=== PATIENT | female | born 2000 | race Hispanic/Latino ===

== ENCOUNTER 2022-04-24 18:31 | Emergency (ER) | payer OTHER, SELFPAY ==
--- OUTSIDE RECORDS SUMMARY | 2022-04-24 18:36 | XMS REPORT | Continuity of Care Document ---
:2000 Author Organization [facility] t Address [address] [place] [address] Dr. Mattson. [address] [place] [address] Care Team Providers Name Role Phone Aries Sharif Primary Care Physician [phone] MIKE NGUYEN Attending Clinician Unavailable Pcp, Patient Does Not Have A Attending Clinician +[phone]- [phone] Doctor Unassigned, [place] Attending Clinician Unavailable LANCE MCINTOSH Attending Clinician Unavailable Payers Payer Name Policy Type Policy Number Effective Date Expiration Date Yesica patiño [place] [id number] 2015 HEALTH 00:00:00 Problems Condition Condition Condition Status Onset Resolution Last Treating Co mments Source Name Details Category Date Date Treatment Clinician Date No known No known Disease Unive rs active active ity of problems problems [facility] Allergies, Adverse Reactions, Alerts Allergy Allergy Status Severity Reaction(s) Onset Inactive Treating Comm ents Source Name Type Date Date Clinician NO KNOWN Drug Active Univers ALLERGIE Class ity of S [facility] Social History Social Habit Start Date Stop Date Quantity Comments Source Sex Assigned At 2000 2001 [facility] 00:00:00 00:00:00 [facility] Smoking Status Start Date Stop Date Source Never smoker [facility] Medications Ordered Filled Start Stop Current Ordering Indication Dosage Frequency Signature Comments Components Source Medication Medication Date Date Medication? Clinician (SIG) Name Name Dose 2021-04 No Unknown 2-14 00:00: 00 Dose No Unknown 6-24 00:00: 00 Dose No Unknown 3-19 00:00: 00 coal tar Yes [id number] Apply Univ ers (PC-TAR) 1 5-13 twice a ity of % shampoo 00:00: week. [place] 00 [facility] Biotin 1 mg Yes [id number] 1{tbl} Take 1 Univers Tab 5-13 tablet by ity of 00:00: mouth daily. Medical Branch coal tar Yes [id number] Apply Univ ers (PC-TAR) 1 5-13 twice a ity of % shampoo 00:00: week. [facility] Biotin 1 mg Yes [id number] 1{tbl} Take 1 Univers Tab 5-13 tablet by ity of 00:00: mouth daily. [facility] Immunizations Ordered Immunization Filled Immunization Date Status Commen ts Source Name Name meningococcal MCV4P 2020-10-12 Completed 00:00:00 Moderna COVID-19 2020-09-22 Completed Vaccine 00:00:00 Moderna COVID-19 2020-08-11 Completed Vaccine 00:00:00 Vital Signs Vital Name Observation Time Observation Value Comments Source BP Systolic 2022-04-12 16:08:00 140 mm[Hg] BP Diastolic 2022-04-12 16:08:00 97 mm[Hg] Weight Measured 2022-04-12 16:08:00 182.80 pounds Height Measured 2022-04-12 16:08:00 68.00 inches Body Temperature 2022-04-12 16:08:00 97.50 degrees Heart Rate 2022-04-12 16:08:00 80.00 /min Respiratory Rate 2022-04-12 16:08:00 18.00 /min BP Systolic 2021-10-21 08:17:00 121 mm[Hg] BP Diastolic 2021-10-21 08:17:00 81 mm[Hg] Weight Measured 2021-10-21 08:17:00 191.60 pounds Height Measured 2021-10-21 08:17:00 69.88 inches Body Temperature 2021-10-21 08:17:00 98.30 degrees Heart Rate 2021-10-21 08:17:00 83.00 /min Respiratory Rate 2021-10-21 08:17:00 20.00 /min BP Systolic 2020-10-12 08:18:00 106 mm[Hg] BP Diastolic 2020-10-12 08:18:00 65 mm[Hg] Weight Measured 2020-10-12 08:18:00 156.00 pounds Height Measured 2020-10-12 08:18:00 69.88 inches Body Temperature 2020-10-12 08:18:00 98.10 degrees Heart Rate 2020-10-12 08:18:00 65.00 /min Respiratory Rate 2020-10-12 08:18:00 20.00 /min BP Systolic 2020-07-16 15:51:00 110 mm[Hg] BP Diastolic 2020-07-16 15:51:00 72 mm[Hg] Weight Measured 2020-07-16 15:51:00 176.40 pounds Height Measured 2020-07-16 15:51:00 69.88 inches Body Temperature 2020-07-16 15:51:00 98.10 degrees Heart Rate 2020-07-16 15:51:00 86.00 /min Respiratory Rate 2020-07-16 15:51:00 18.00 /min BP Systolic 2017-09-06 13:27:00 126 mm[Hg] BP Diastolic 2017-09-06 13:27:00 85 mm[Hg] Weight Measured 2017-09-06 13:27:00 209.40 pounds Height Measured 2017-09-06 13:27:00 69.50 inches Body Temperature 2017-09-06 13:27:00 Heart Rate 2017-09-06 13:27:00 84.00 /min Respiratory Rate 2017-09-06 13:27:00 Procedures Procedure Date / Time Performed Performing Clinician [facility] e REFERRAL- 2020-07-16 05:01:00 Doctor Unassigned, No [facility] REQUEST/RESPONSE Name Medical Branch Plan of Care Planned Activity Planned Date Details Comments Source Goal Plan of Care Note [code = 04609-1] Goal Plan of Care Note [code = 42033-5] Goal Plan of Care Note [code = 59473-5] Goal Plan of Care Note [code = 57426-4] Goal Plan of Care Note [code = 08201-8] Goal Plan of Care Note [code = 13386-9] Goal Plan of Care Note [code = 02092-9] Goal Plan of Care Note [code = 20937-4] Goal Plan of Care Note [code = 90371-8] Goal Plan of Care Note [code = 52839-0] Goal Plan of Care Note [code = 65001-8] Goal Plan of Care Note [code = 24940-3] Encounters Start End Encounter Admission Attending Care Care Encounter Source Date/Time Date/Time Type Type Clinicians Facility Department ID 2022-04-12 2022-04-12 Outpatient TREVOR MURRAY [id number] Noam 15:52:09 15:52:09 1214 F Arturo 2022-04-12 2022-04-12 Outpatient [id number] 00:00:00 00:00:00 Visit [id number] 2020-08-04 2020-08-04 Outpatient R PATRICK [facility] [id number] Univers 13:00:00 13:00:00 SENDIL hemant [facility] 2020-07-26 2020-07-26 Telephone Pcp, [facility] [id number] Univers 00:00:00 00:00:00 Patient Lakhwinder [id number] i ty of Does Not [place] [id number] Joss as Have A Professio [id number] [place] dical nal 059 [facility] 2020-07-16 2020-07-16 Orders Doctor RAEANN [id number] Univers 00:00:00 00:00:00 Only Unassigned, MARILYNN [id number] ity of [place] [facility] [id number] Joss as [id number] [place] [address] Branch 2019-12-19 2019-12-19 Outpatient Griselda MCINTOSH [facility] [id number] Univers 14:40:00 14:40:00 LANCE marcos [facility] Results Test Description Test Time Test Comments Results Result Comments Source CT/NG, NAAT, URINE 2022-04-14 17:20:55 Test Item Value Reference Range Interpretation Comme nts GONORRHEA, NAAT NEGATIVE NEGATIVE IMPORTA NT NOTICE: SEE ANNOUNCEMENT AT (test code = [email or web address] Note: 93304) Assay methodolo gy is nucleic acid amplification by transcriptio n mediated amplification (TMA) utilizing the A ptima Combo 2 Assay. CHLAMYDIA, NAAT NEGATIVE NEGATIVE IMPORTA NT NOTICE: SEE ANNOUNCEMENT AT (test code = [email or web address] Note: 96686) Assay methodolo gy is nucleic acid amplification by transcriptio n mediated amplification (TMA) utilizing the A ptima Combo 2 Assay. HIV 1/2 4TH GEN, RFLX [id number] 05:03:19 Test Item Value Reference Range Interpretation Comments HIV 1/2 4TH GEN, RFLX CONF (test NON-REACTIVE NON-REACTIVE code = 3514) HEPATITIS PANEL, [id number] 05:03:19 Test Item Value Reference Range Interpretation Comments HEPATITIS A IgM (test NON-REACTIVE NON-REACTIVE code = 75775) HEPATITIS B CORE IgM NON-REACTIVE NON-REACTIVE (test code = 4644) HEPATITIS B SURF AG NON-REACTIVE NON-REACTIVE (test code = 2739) HEPATITIS C ANTIBODY NON-REACTIVE NON-REACTIVE (test code = 4675) INTERPRETATION (NOTE) Hepatitis A HEPATITIS A: (test serology shows no code = 2552) evidence of acu te hepatitis A. INTERPRETATION (NOTE) Hepatitis B HEPATITIS B: (test serology shows no code = 66168) evidence of ac jaime hepatitis B and no indication of exposure to hepatitis B vir us in the previous si xto eight months. INTERPRETATION (NOTE) Hepatitis C HEPATITIS C: (test serology shows no code = 23296) evidence of ex posure to hepatitisC v irus at this time. I t can take up to 12 m onths after exposure tothe hepatitis C vir us for antibodies to become detectab le in the blood in ce rtain patients. UNLES S OTHERWISE INDIC ATED, ALL TESTING PERFORMED [facility], [place]. [address] [facility] [address] [facility] CHIARA DIRECTOR: Jairon BOYCEIA NUMBER [id number] [place] [id number] 03:10:59 Test Item Value Reference Range Interpretation Comments RPR RESULT (test code = NON-REACTIVE NON-REACTIVE 3501) RPR TITER (test code = 3500) NOT INDIC. TITER NOT INDIC. CBC W/AUTO [id number] 00:00:00 Test Item Value Reference Range Interpretation Comments WBC (test code = 1001) 9.2 K/UL RBC (test code = 1002) 4.64 M/UL HEMOGLOBIN (test code = 1003) 12.2 G/DL HEMATOCRIT (test code = 1004) 36.4 % MCV (test code = 1005) 78.4 fL MCH (test code = 1006) 26.3 PG MCHC (test code = 1007) 33.5 G/DL RDW (test code = 1038) 13.7 % NEUTROPHILS (test code = 1008) 72.1 % LYMPHOCYTES (test code = 1010) 20.7 % MONOCYTES (test code = 1011) 5.7 % EOSINOPHILS (test code = 1012) 1.0 % BASOPHILS (test code = 1013) 0.5 % PLATELET COUNT (test code = 1015) 307 K/UL CBC W/AUTO [id number] 00:00:00 Test Item Value Reference Range Interpretation Comments WBC (test code = 1001) 9.2 K/UL RBC (test code = 1002) 4.64 M/UL HEMOGLOBIN (test code = 1003) 12.2 G/DL HEMATOCRIT (test code = 1004) 36.4 % MCV (test code = 1005) 78.4 fL MCH (test code = 1006) 26.3 PG MCHC (test code = 1007) 33.5 G/DL RDW (test code = 1038) 13.7 % NEUTROPHILS (test code = 1008) 72.1 % LYMPHOCYTES (test code = 1010) 20.7 % MONOCYTES (test code = 1011) 5.7 % EOSINOPHILS (test code = 1012) 1.0 % BASOPHILS (test code = 1013) 0.5 % PLATELET COUNT (test code = 1015) 307 K/UL COMPREHENSIVE METABOLIC [id number] 00:00:00 Test Item Value Reference Range Interpretation Comments GLUCOSE (test code = 2217) 78 MG/DL BUN (test code = 2208) 10 MG/DL CREATININE (test code = 2214) 0.78 MG/DL eGFR AMER. (test code 128 ML/MIN/1.73 = 58610) eGFR NON- AMER. (test 110 ML/MIN/1.73 code = 44309) CALC BUN/CREAT (test code = 13 RATIO 2235) SODIUM (test code = 2231) 137 MEQ/L POTASSIUM (test code = 2228) 3.7 MEQ/L CHLORIDE (test code = 2215) 99 MEQ/L CARBON DIOXIDE (test code = 25 MEQ/L 220) CALCIUM (test code = 2209) 9.4 MG/DL PROTEIN, TOTAL (test code = 7.8 G/DL 222) ALBUMIN (test code = 2201) 4.8 G/DL CALC GLOBULIN (test code = 3.0 G/DL 2240) CALC A/G RATIO (test code = 1.6 RATIO 2234) BILIRUBIN, TOTAL (test code = 0.3 MG/DL 2206) ALKALINE PHOSPHATASE (test 60 U/L code = 2204) AST (test code = 2218) 38 U/L ALT (test code = 2219) 20 U/L COMPREHENSIVE METABOLIC [id number] 00:00:00 Test Item Value Reference Range Interpretation Comments GLUCOSE (test code = 2217) 78 MG/DL BUN (test code = 2208) 10 MG/DL CREATININE (test code = 2214) 0.78 MG/DL eGFR AMER. (test code 128 ML/MIN/1.73 = 17718) eGFR NON- AMER. (test 110 ML/MIN/1.73 code = 34588) CALC BUN/CREAT (test code = 13 RATIO 2235) SODIUM (test code = 2231) 137 MEQ/L POTASSIUM (test code = 2228) 3.7 MEQ/L CHLORIDE (test code = 2215) 99 MEQ/L CARBON DIOXIDE (test code = 25 MEQ/L 2205) CALCIUM (test code = 2209) 9.4 MG/DL PROTEIN, TOTAL (test code = 7.8 G/DL 2228) ALBUMIN (test code = 2201) 4.8 G/DL CALC GLOBULIN (test code = 3.0 G/DL 2240) CALC A/G RATIO (test code = 1.6 RATIO 2234) BILIRUBIN, TOTAL (test code = 0.3 MG/DL 2206) ALKALINE PHOSPHATASE (test 60 U/L code = 2204) AST (test code = 2218) 38 U/L ALT (test code = 2219) 20 U/L [id number] 00:00:00 Test Item Value Reference Range Interpretation Comments TSH, THIRD GENERATION (test code 0.934 UIU/ML = 2821) [id number] 00:00:00 Test Item Value Reference Range Interpretation Comments TSH, THIRD GENERATION (test code 0.934 UIU/ML = 2821) [id number] 00:00:00 Test Item Value Reference Range Interpretation Comments TSH, THIRD GENERATION (test code 0.934 UIU/ML = 2821) CBC W/AUTO [id number] 00:00:00 Test Item Value Reference Range Interpretation Comments WBC (test code = 1001) 9.2 K/UL RBC (test code = 1002) 4.64 M/UL HEMOGLOBIN (test code = 1003) 12.2 G/DL HEMATOCRIT (test code = 1004) 36.4 % MCV (test code = 1005) 78.4 fL MCH (test code = 1006) 26.3 PG MCHC (test code = 1007) 33.5 G/DL RDW (test code = 1038) 13.7 % NEUTROPHILS (test code = 1008) 72.1 % LYMPHOCYTES (test code = 1010) 20.7 % MONOCYTES (test code = 1011) 5.7 % EOSINOPHILS (test code = 1012) 1.0 % BASOPHILS (test code = 1013) 0.5 % PLATELET COUNT (test code = 1015) 307 K/UL
[2022-04-24 20:08] LABS: Urine Blood Negative (Negative); Urine Glucose Negative (Negative); Urine Protein Negative (Negative)
--- NOTE | 2022-04-24 20:13 | RAD REPORT ---
EXAM DESCRIPTION: CT - Head Brain Wo Cont - 04/24/2022 7:58 pm CLINICAL HISTORY: hallucinations COMPARISON: <Comparisons> TECHNIQUE: All CT scans are performed using dose optimization technique as appropriate and may inclu de automated exposure control or mA/KV adjustment according to patient size. FINDINGS: No intracranial hemorrhage, hydrocephalus or extra-axial fluid collection.No areas of brai n edema or evidence of midline shift. The paranasal sinuses and mastoids are clear. The calvarium is intact. IMPRESSION: No acute intracranial abnormality.
[2022-04-24 20:37] LABS: ALT/SGPT 24 U/L (13-56); AST/SGOT 13 U/L (15-37); Albumin 4.2 g/dL (3.4-5.0); Alkaline Phosphatase 75 U/L (45-117); BUN Blood Urea Nitrogen 14 mg/dL (7-18); Bicarbonate 31 mmol/L (21-32); Bilirubin Total 0.3 mg/dL (0.2-1.0); Glomerular Filtration Rate 108 ml/min (=/>90); Glucose Level 90 mg/dL (74-106); Potassium 3.5 mmol/L (3.5-5.1); Protein, Total 8.6 g/dL (6.4-8.2); Sodium Level 137 mmol/L (136-145)
[2022-04-24 20:37] LABS: Barbiturates NEGATIVE (NEGATIVE); Benzodiazepines NEGATIVE (NEGATIVE); Cocaine NEGATIVE (NEGATIVE); METHAMPHETAM NEGATIVE (NEGATIVE); Methadone NEGATIVE (NEGATIVE); Opiates NEGATIVE (NEGATIVE); Phencyclidine NEGATIVE (NEGATIVE); THC Cannibis NEGATIVE (NEGATIVE)
[2022-04-24 20:38] LABS: Bilirubin Direct < 0.1 mg/dL (0-0.2)
[2022-04-24 20:39] LABS: Protime INR 0.99
[2022-04-24 20:40] LABS: SARS-CoV-2 Antigen Rapid Res Negative (Negative)
--- NOTE | 2022-04-24 21:01 | ER ---
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 Denies ld1 injury to head. Coronavirus screen: At this time, the client does not indicate any symptoms associated with coronavirus-19. Ebola Screen: No symptoms or risks identified at this time. Initial Sepsis Screen: Does the patient meet any 2 criteria? No. Patient's initial sepsis screen is negative. Does the patient have a suspected source of infection? No. Patient's initial sepsis screen is negative. Risk Assessment: Do you want to hurt yourself or someone else? Patient reports no desire to harm self or others. Onset of symptoms was April 24, 2022. 18:40 Method Of Arrival: Ambulatory ld1 18:40 Acuity: LEANDRO 3 ld1 Triage Assessment: 18:42 General: Appears in no apparent distress. comfortable, Behavior is calm, cooperative, ld1 appropriate for age. Pain: Denies pain. EENT: Reports blurred vision since X 8 days. Neuro: Level of Consciousness is awake, alert, obeys commands, Oriented to person, place, time, situation. Cardiovascular: Capillary refill < 3 seconds Patient's skin is warm and dry. Respiratory: Airway is patent Respiratory effort is even, unlabored. GI: Abdomen is round non-distended. : No signs and/or symptoms were reported regarding the genitourinary system. Derm: No signs and/or symptoms reported regarding the dermatologic system. Musculoskeletal: No signs and/or symptoms reported regarding the musculoskeletal system. 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 - Social history:: Smoking status: Patient denies any tobacco usage or history of. Patient/guardian denies using alcohol. Screenin:23 [facility] ED Fall Risk Assessment (Adult) History of falling in the last 3 months, jb4 including since admission No falls in past 3 months (0 pts) Confusion or Disorientation No (0 pts) Intoxicated or Sedated No (0 pts) Impaired Gait No (0 pts) Mobility Assist Device Used No (0 pt) Altered Elimination No (0 pt) Score/Fall Risk Level 0 - 2 = Low Risk Oriented to surroundings, Maintained a safe environment. Abuse screen: Denies threats or abuse. Nutritional screening: No deficits noted. Tuberculosis screening: No symptoms or risk factors identified. Assessment: 21:21 General: Appears in no apparent distress. comfortable, Behavior is calm, cooperative, jb4 appropriate for age. Pain: Denies pain. Neuro: Level of Consciousness is awake, alert, obeys commands, Oriented to person, place, time, situation, Denies diplopia. Cardiovascular: Patient's skin is warm and dry. Respiratory: Airway is patent Respiratory effort is even, unlabored, Respiratory pattern is regular, symmetrical. GI: No signs and/or symptoms were reported involving the gastrointestinal system. : No signs and/or symptoms were reported regarding the genitourinary system. EENT: No signs and/or symptoms were reported regarding the EENT system. Derm: Skin is intact, Skin is pink, warm \\T\\ dry. Vital Signs: 18:40 BP 132 / 84; Pulse 79; Resp 18; Temp 98.0(O); Pulse Ox 100% on R/A; Weight 81.65 kg; ld1 Height 5 ft. 8 in. (172.72 cm); Pain 0/10; 21:21 BP 133 / 69; Pulse 70; Resp 16; Pulse Ox 98% on R/A; jb4 18:40 Body Mass Index 27.37 (81.65 kg, 172.72 cm) ld1 ED Course: 18:34 Patient arrived in ED. rg4 18:42 Boris Cantu PA is PHCP. jmm 18:42 Darian Keith MD is Attending Physician. jmm 18:42 Triage completed. ld1 18:42 Arm band placed on right wrist. ld1 19:59 CT Head Brain wo Cont In Process Unspecified. EDMS 20:41 Jagdish Ramos, ILENE is Primary Nurse. jb4 21:01 Arash Reed MD is Referral Physician. [facility] 21:23 Patient has correct armband on for positive identification. Placed in gown. Bed in low jb4 position. Call light in reach. Side rails up X 1. Client placed on continuous cardiac and pulse oximetry monitoring. NIBP monitoring applied. 21:23 No provider procedures requiring assistance completed. IV discontinued, intact, jb4 bleeding controlled, No redness/swelling at site. Pressure dressing applied. Administered Medications: No medications were administered Medication: 21:24 VIS not applicable for this client. jb4 Outcome: 21:01 Discharge ordered by . ariana 21:23 Discharged to home ambulatory. jb4 21:23 Condition: stable 21:23 Discharge instructions given to patient, Instructed on discharge instructions, follow up and referral plans. Demonstrated understanding of instructions, follow-up care. 21:24 Patient left the ED. jb4 Signatures: Dispatcher [employer] EDMS Boris Cantu PA PA jmm Garcia, Rubi rg4 Jagdish Ramos, RN RN jb4 Antonia Davis, ILENE RN ld1
--- NOTE | 2022-04-24 21:02 | EDPHYS ---
Physician Documentation [facility] Name: Pam Keller Age: 21 yrs Sex: Female : 2000 Arrival Date: 04/24/2022 Time: 18:34 Bed 5 Private MD: ED Physician Darian Keith HPI: 04/24 18:48 This 21 yrs old Female presents to ER via Ambulatory with complaints of Vision jmm Problem. 18:48 The patient presents to the emergency department with psychosis, has experienced jmm auditory hallucinations, has experienced visual hallucinations. Onset: The symptoms/episode began/occurred gradually. Is a 21-year-old female with no known chronic medical conditions presents emerged part with complaints of visual hallucinations, mainly when she closes her eyes. Patient is unable to recall what she sees. Also complains of occasional episodes of blurred vision. Patient states she is having memory issues as well. Patient states the symptoms been going on for months but states have worsened since she discontinued drinking alcohol about 8 days ago. . 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 - Social history:: Smoking status: Patient denies any tobacco usage or history of. Patient/guardian denies using alcohol. ROS: 18:48 Constitutional: Negative for fever, chills, and weight loss, Cardiovascular: Negative jmm for chest pain, palpitations, and edema, Respiratory: Negative for shortness of breath, cough, wheezing, and pleuritic chest pain. 18:48 Neuro: Positive for altered mental status, visual changes. 18:48 All other systems are negative. Exam: 18:48 Constitutional: This is a well developed, well nourished patient who is awake, alert, jmm and in no acute distress. Head/Face: atraumatic. Eyes: EOMI, no conjunctival erythema appreciated ENT: Moist Mucus Membranes Neck: Trachea midline, Supple Chest/axilla: Normal chest wall appearance and motion. Cardiovascular: Regular rate and rhythm. No edema appreciated Respiratory: Normal respirations, no respiratory distress appreciated Abdomen/GI: Non distended Back: Normal ROM Skin: General appearance color normal MS/ Extremity: Moves all extremities, no obvious deformities appreciated, no edema noted to the lower extremities 18:48 Neuro: Orientation: is normal, Mentation: is normal, Memory: is normal, Motor: is normal. 18:48 Psych: Behavior/mood is pleasant, cooperative, Affect is calm, flat, Oriented to person, place, time, Patient has no thoughts/intents to harm self or others. Delusions/hallucinations Vital Signs: 18:40 BP 132 / 84; Pulse 79; Resp 18; Temp 98.0(O); Pulse Ox 100% on R/A; Weight 81.65 kg; ld1 Height 5 ft. 8 in. (172.72 cm); Pain 0/10; 21:21 BP 133 / 69; Pulse 70; Resp 16; Pulse Ox 98% on R/A; jb4 18:40 Body Mass Index 27.37 (81.65 kg, 172.72 cm) ld1 MDM: 18:48 [facility] medically screened. [facility] 20:59 Data reviewed: vital signs, nurses notes. Counseling: I had a detailed discussion with ariana the patient and/or guardian regarding: the historical points, exam findings, and any diagnostic results supporting the discharge/admit diagnosis, lab results, radiology results, the need for outpatient follow up. ED course: I discussed results with the patient. I did offer psychiatric evaluation due to visual hallucinations. Patient's main concern was toxic neurologic effects from her heavy drinking. Labs and electrolytes are unremarkable. CT was negative. I did recommend that the patient follow-up with neurology for further evaluation patient understood and agrees plan of care.. 04/24 18:48 Order name: Acetaminophen; Complete Time: 20:40 [facility] 04/24 18:48 Order name: Basic Metabolic Panel; Complete Time: 20:40 [facility] 04/24 18:48 Order name: ETOH Level; Complete Time: 20:50 [facility] 04/24 18:48 Order name: Hepatic Function; Complete Time: 20:40 [facility] 04/24 18:48 Order name: PT-INR; Complete Time: 20:41 [facility] 04/24 18:48 Order name: Ptt, Activated; Complete Time: 20:41 [facility] 04/24 18:48 Order name: Salicylate; Complete Time: 20:38 [facility] 04/24 18:48 Order name: Urine Drug Screen; Complete Time: 20:38 [facility] 04/24 18:48 Order name: EKG; Complete Time: 18:49 [facility] 04/24 18:48 Order name: EKG - Nurse/Tech; Complete Time: 20:41 [facility] 04/24 18:49 Order name: SARS RAPID; Complete Time: 20:41 [facility] 04/24 18:49 Order name: CT Head Brain wo Cont; Complete Time: 20:15 [facility] 04/24 20:08 Order name: Urine Dipstick-Ancillary; Complete Time: 20:15 [facility] 04/24 18:48 Order name: IV Saline Lock; Complete Time: 20:09 [facility] 04/24 18:48 Order name: Labs collected and sent; Complete Time: 20:09 [facility] 04/24 18:48 Order name: Urine Dipstick-Ancillary (obtain specimen); Complete Time: 20:09 [facility] 04/24 18:49 Order name: Urine Test (obtain specimen); Complete Time: 20:10 [facility] Administered Medications: No medications were administered Disposition Summary: 04/24/22 21:01 Discharge Ordered Location: Home [facility] Condition: Stable [facility] Diagnosis - 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 [facility] - With: Arash Reed MD - When: 2 - 3 days - Reason: Recheck today's complaints, Continuance of care, Re-evaluation by your physician Discharge Instructions: - Discharge Summary Sheet [facility] - Alcohol Use Disorder [facility] - Psychosis [facility] Forms: - Medication Reconciliation Form [facility] - Thank You Letter [facility] - Antibiotic Education [facility] - Prescription Opioid Use [facility] Signatures: Dispatcher [employer] EDMS Boris Cantu PA PA [facility] Jono Mcgee MD MD rn Dibbern, Lauren, RN RN ld1 Corrections: (The following items were deleted from the chart) 20:59 18:48 Is a 21-year-old female with no known chronic medical conditions presents emerged [facility] part with complaints of visual hallucinations, mainly when she closes her eyes. Patient is unable to recall what she sees. Patient states she is having memory issues as well. Patient states the symptoms been going on for months but states have worsened since she discontinued drinking alcohol about 8 days ago. . [facility] 21:21 18:48 Suicide Screening ([place]) ordered. jmm jb4
[2022-04-24 21:28] VITALS: TEMP 98
[2022-04-24 21:29] VITALS: BP 133/69; O2SAT 98
--- NOTE | 2022-04-25 13:38 | EKG ---
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
== END 2022-04-24 21:24 | disposition home or self-care (01) ==
LOC: ER 18:31
DX: F10.151 Alcohol abuse with alcohol-induced psychotic disorder with hallucinations (principal); Z20.822 Contact with and (suspected) exposure to COVID-19
CPT/HCPCS: 36415; 70450; 80048; 80076; 80307; 80320; 80329; 81003; 85610; 85730; 87811; 93005; 99283

== ENCOUNTER 2024-04-19 19:05 | Emergency (ER) | payer OTHER, SELFPAY ==
--- OUTSIDE RECORDS SUMMARY | 2024-04-19 19:08 | XMS REPORT | Continuity of Care Document ---
Author Name Unknown Address [address] [place] [address] [facility] thconnect Address [address] [place] [address] Care Team Providers Care Hemodialysis Patient Care Specialist Name Role Phone MELISA MEDRANO Primary Care Physician Unavailab Melisa Peralta Attending Clinician Unavailable AGUSTINA VARGAS Attending Clinician Unav Agustina Wagner MD Attending Clinician + JAVY Attending Clinician Unavailable MIKE NGUYEN Attending Clinician Unavaila harmony Pcp, Patient Does Not Have A Attending Clinician Doctor Unassigned, [place] Attending Clinician U LANCE Jacob Attending Clinician Unavailable AGUSTINA VARGAS Admitting Clinician Unav regi [place] Admitting Clinician Unavailable Payers Payer Name Policy Type Policy Number Effective Date Expirati on Date Source HIM FAVIO FROM [facility] [id number] 2022 00:00:00 [facility] [id number] 2015 00:00:00 Problems Condition Name Condition Details Condition Category Status Onset Date Resolution Date Last Treatment Date Treating Clinician Comments Source No known active problems No known active problems Disease [facility] Allergies, Adverse Reactions, Alerts Allergy Name Allergy Type Status Severity Reaction(s) Onset Date Inactive Date Treating Clinician Comments Source NO KNOWN ALLERGIE S Drug Class Active [facility] Social History Social Habit Start Date Stop Date Quantity Comments Source Exposure to SARS-CoV-2 (event) 2022-04-30 00:00:00 2022-05-10 11:47:00 Not sure [facility] Sex Assigned At 2001 00:00:00 2000 00:00:00 [facility] Smoking Status Start Date Stop Date Source Never smoked tobacco [facility] Medications Ordered Medication Name Filled Medication Name Start Date Stop Date Current Medication? Ordering Clinician Indication Dosage Frequency Signature (SIG) Comments Components Source valacyclovi r 500 mg tablet 2023-04 00:00: 00 Yes 1mg Noam Morris Depakote 500 mg tablet,timbo yed release 2023-04 00:00: 00 Yes 1mg Noam Morris Diflucan 100 mg tablet 2023-04 00:00: 00 Yes 1mg Noam Morris quetiapine 25 mg tablet 2023-04 00:00: 00 Yes 1mg Noam Morris nystatin 100,000 unit/gram topical cream 07-30 00:00: 00 Yes 1unit/g cheli Noam Morris VALACYCLOVI R 1GM 2022-04 00:00: 00 Yes Noam Morris IBUPROFEN 800MG 906 00:00: 00 Yes Noam Morris TAKE 1 TABLET ONCE DAILY. 11-30 00:00: 00 09-11 00:00 :00 No 50 Noam Morris TAKE 1 TABLET DAILY. 11-30 00:00: 00 09-11 00:00 :00 No 50 Noam Morris TAKE ONE TABLET DAILY NEEDED FOR ANXIETY 11-30 00:00: 00 09-11 00:00 :00 No 25 Noam Morris INJECT INTRAMUSCUL AR IN THE GLUTEAL REGION EVERY 4 WEEKS. 11-27 00:00: 00 Yes 380 Noam Morris SERTRALINE 50MG 11-21 00:00: 00 Yes [id number] Noam Morris HYDROXYZ HCL 25MG - 00:00: 00 09-11 00:00 :00 No Noam Reed Arturo ONE TABLET BY MOUTH DAILY FOR ANXIETY NEEDED. 7-24 00:00: 00 Yes 25 Noam Morris TAKE 1 TABLET ONCE DAILY. 7-24 00:00: 00 Yes 50 Noam Morris TAKE 1 TABLET DAILY. 7-24 00:00: 00 Yes 50 Noam Morris TAKE 1 TABLET BY MOUTH ONCE DAILY 7-24 00:00: 00 Yes Noam Morris CLINDAMYCIN 300MG 7-14 00:00: 00 Yes Noam Morris SERTRALINE 50MG 7-11 00:00: 00 Yes oNam Morris SERTRALINE 25MG 6-09 00:00: 00 Yes Noam Morris ONDANSETRON 4MG 6-08 00:00: 00 Yes Noam Morris TRAZODONE 50MG 6-08 00:00: 00 Yes Noam Morris HYDROXYZ BRAYDEN 25MG 6-08 00:00: 00 Yes Noam Morris TAKE 1 CAPSULE EVERY MORNING. 2-15 00:00: 00 09-11 00:00 :00 No 10 Noam Morris TAKE 1 CAPSULE BY MOUTH THREE TIMES DAILY FOR 7 DAYS 1-25 00:00: 00 Yes Noam Morris TAKE 1 TABLET EVERY 12 HOURS DAILY. 1- 00:00: 00 09-11 00:00 :00 No Noam Morris Dose Unknown 2021-04 2-14 00:00: 00 No TAKE 1 TABLET EVERY 12 HOURS DAILY. 2021-04 2-14 00:00: 00 No Dose Unknown 2021-04 2-14 00:00: 00 Yes Noam Morris Dose Unknown 6-24 00:00: 00 No Dose Unknown 0 6-24 00:00: 00 No Dose Unknown 0 6-24 00:00: 00 Yes Noam Morris Dose Unknown 3-19 00:00: 00 No Dose Unknown 3-19 00:00: 00 No Dose Unknown 3-19 00:00: 00 Yes Noam Morris coal tar (PC-TAR) 1 % shampoo - 00:00: 00 Yes [id number] Apply twice a week. [facility] Biotin 1 mg Tab 2015-0 09-09 00:00: 00 Yes [id number] 1{tbl} Take 1 tablet by mouth daily. [facility] Immunizations Ordered Immunization Name Filled Immunization Name Date Status Comments Source meningococcal MCV4P 2020-10-12 00:00:00 Completed meningococcal MCV4P 2020-10-12 00:00:00 Completed meningococcal MCV4P meningococcal MCV4P 00:00:00 Completed Noam Morris Moderna COVID-19 Vaccine 2020-09-22 00:00:00 Completed Moderna COVID-19 Vaccine 2020-09-22 00:00:00 Completed Moderna COVID-19 Vaccine Moderna COVID-19 Vaccine 2020-09-22 00:00:00 Completed Noam Morris Moderna COVID-19 Vaccine 2020-08-11 00:00:00 Completed Moderna COVID-19 Vaccine 2020-08-11 00:00:00 Completed Moderna COVID-19 Vaccine Moderna COVID-19 Vaccine 2020-08-11 00:00:00 Completed Noam Morris HPV, quadrivalent HPV, quadrivalent 2015-02-18 00:00:00 Completed Noam Morris influenza, live, intrana influenza, live, intrana 2015-02-18 00:00:00 Completed Noam Morris Influenza, seasonal, inj Influenza, seasonal, inj 2014-02-09 00:00:00 Davey Morris Hep A, ped/adol, 2 dose Hep A, ped/adol, 2 dose 2013-12-18 00:00:00 Completed Noam Morris varicella varicella 2013-12-18 00:00:00 Completed Noam Morris meningococcal MCV4P meningococcal MCV4P 00:00:00 Davey Morris Tdap Tdap 2013-12-18 00:00:00 Davey Morris Influenza, seasonal, inj Influenza, seasonal, inj 2013-03-09 00:00:00 Davey Morris Hep A, ped/adol, 2 dose Hep A, ped/adol, 2 dose 2005-12-06 00:00:00 Completed Noam Morris MMR MMR 2005-06-26 00:00:00 Completed Noam Morris IPV IPV 2005-06-26 00:00:00 Completed Noam Morris DTaP, unspecified formul DTaP, unspecified formul 2005-06-26 00:00:00 Completed Noam Morris pneumococcal conjugate P pneumococcal conjugate P 2002-12-11 00:00:00 Completed Noam Morris DTaP, unspecified formul DTaP, unspecified formul 2002-12-11 00:00:00 Completed Noam Morris Hib (PRP-T) Hib (PRP-T) 2002-08-04 00:00:00 Completed Noam Morris MMR MMR 2002-08-04 00:00:00 Completed Noam Morris pneumococcal conjugate P pneumococcal conjugate P 2002-08-04 00:00:00 Completed Noam Morris varicella varicella 2002-08-04 00:00:00 Completed Noam Morris IPV IPV 2002-04-10 00:00:00 Completed Noam Morris Hep B, adolescent or ped Hep B, adolescent or ped 2001 00:00:00 Completed Noam Morris Hib (PRP-T) Hib (PRP-T) 2001 00:00:00 Completed Noam Morris DTaP, unspecified formul DTaP, unspecified formul 2001 00:00:00 Completed Naom Morris Hib (PRP-T) Hib (PRP-T) 2001 00:00:00 Completed Noam Morris pneumococcal conjugate P pneumococcal conjugate P 2001 00:00:00 Completed Noam Morris IPV IPV 2001 00:00:00 Completed Noam Morris DTaP, unspecified formul DTaP, unspecified formul 2001 00:00:00 Completed Noam Morris Hep B, adolescent or ped Hep B, adolescent or ped 2001 00:00:00 Completed Noam Morris Hib (PRP-T) Hib (PRP-T) 2001 00:00:00 Completed Noam Morris IPV IPV 2001 00:00:00 Completed Noam Morris DTaP, unspecified formul DTaP, unspecified formul 2001 00:00:00 Completed Noam Morris Hep B, adolescent or ped Hep B, adolescent or ped 2001 00:00:00 Completed Noam Derek Arturo Vital Signs Vital Name Observation Time Observation Value Comments S haroon Systolic blood pressure 2022-05-10 21:00:00 122 mm[Hg] [place] [facility] Diastolic blood pressure 2022-05-10 21:00:00 75 mm[Hg] [facility] Heart rate 2022-05-10 21:00:00 82 /min [facility] Respiratory rate 2022-05-10 21:00:00 17 /min [facility] Oxygen saturation in Arterial blood by Pulse oximetry 2022-05-10 21:00:00 100 /min [place] [facility] Body temperature 2022-05-10 17:47:00 36.89 Serena [facility] Body weight 2022-05-10 17:47:00 79.833 kg [facility] BP Systolic 2024-03-18 10:59:00 120 mm[Hg] Step hen F Arturo BP Diastolic 2024-03-18 10:59:00 72 mm[Hg] Srinivasan phen F Arturo Weight Measured 2024-03-18 10:59:00 188.00 pounds Noam F Arturo Height Measured 2024-03-18 10:59:00 68.00 inches Noam F Arturo Body Temperature 2024-03-18 10:59:00 98.20 degrees Noam F Arturo Heart Rate 2024-03-18 10:59:00 97.00 /min Hillary en F Arturo Respiratory Rate 2024-03-18 10:59:00 18.00 /min Noam F Arturo BP Systolic 2023-09-17 08:01:00 120 mm[Hg] Step hen F Arturo BP Diastolic 2023-09-17 08:01:00 72 mm[Hg] Srinivasan phen F Arturo Weight Measured 2023-09-17 08:01:00 198.00 pounds Noam F Arturo Height Measured 2023-09-17 08:01:00 68.00 inches Noam F Arturo Body Temperature 2023-09-17 08:01:00 98.00 degrees Noam F Arturo Heart Rate 2023-09-17 08:01:00 88.00 /min Hillary en F Arturo Respiratory Rate 2023-09-17 08:01:00 16.00 /min Noam F Arturo BP Systolic 2023-07-31 15:00:00 135 mm[Hg] Step hen F Arturo BP Diastolic 2023-07-31 15:00:00 93 mm[Hg] Srinivasan phen F Arturo Weight Measured 2023-07-31 15:00:00 204.20 pounds Noam F Arturo Height Measured 2023-07-31 15:00:00 68.00 inches Noam F Arturo Body Temperature 2023-07-31 15:00:00 98.10 degrees Noam F Arturo Heart Rate 2023-07-31 15:00:00 90.00 /min Hillary en F Arturo Respiratory Rate 2023-07-31 15:00:00 19.00 /min Noam F Arturo BP Systolic 2022-06-14 09:21:00 90 mm[Hg] Step hen F Arturo BP Diastolic 2022-06-14 09:21:00 61 mm[Hg] Srinivasan phen F Arturo Weight Measured 2022-06-14 09:21:00 186.20 pounds Noam F Arturo Height Measured 2022-06-14 09:21:00 68.00 inches Noam F Arturo Body Temperature 2022-06-14 09:21:00 97.80 degrees Noam F Arturo Heart Rate 2022-06-14 09:21:00 76.00 /min Hillary en F Arturo Respiratory Rate 2022-06-14 09:21:00 18.00 /min Noam F Arturo BP Systolic 2022-06-12 17:01:00 100 mm[Hg] Step hen F Arturo BP Diastolic 2022-06-12 17:01:00 67 mm[Hg] Srinivasan phen F Arturo Weight Measured 2022-06-12 17:01:00 Noam F Arturo Height Measured 2022-06-12 17:01:00 Noam F Arturo Body Temperature 2022-06-12 17:01:00 97.20 degrees Noam F Arturo Heart Rate 2022-06-12 17:01:00 87.00 /min Hillary en F Arturo Respiratory Rate 2022-06-12 17:01:00 Noam F Arturo BP Systolic 2022-04-27 08:21:00 114 mm[Hg] Step hen F Arturo BP Diastolic 2022-04-27 08:21:00 77 mm[Hg] Srinivasan phen F Arturo Weight Measured 2022-04-27 08:21:00 182.80 pounds Noam F Arturo Height Measured 2022-04-27 08:21:00 68.00 inches Noam F Arturo Body Temperature 2022-04-27 08:21:00 98.10 degrees Noam F Arturo Heart Rate 2022-04-27 08:21:00 75.00 /min Hillary en F Arturo Respiratory Rate 2022-04-27 08:21:00 18.00 /min Noam F Arturo BP Systolic 2022-04-12 16:08:00 140 mm[Hg] Step hen F Arturo BP Diastolic 2022-04-12 16:08:00 97 mm[Hg] Srinivasan phen F Arturo Weight Measured 2022-04-12 16:08:00 182.80 pounds Noam F Arturo Height Measured 2022-04-12 16:08:00 68.00 inches Noam F Arturo Body Temperature 2022-04-12 16:08:00 97.50 degrees Noam F Arturo Heart Rate 2022-04-12 16:08:00 80.00 /min Hillary en F Arturo Respiratory Rate 2022-04-12 16:08:00 18.00 /min Noam F Arturo BP Systolic 2021-10-21 08:17:00 121 mm[Hg] Step hen F Arturo BP Diastolic 2021-10-21 08:17:00 81 mm[Hg] Srinivasan phen F Arturo Weight Measured 2021-10-21 08:17:00 191.60 pounds Noam F Arturo Height Measured 2021-10-21 08:17:00 69.88 inches Noam F Arturo Body Temperature 2021-10-21 08:17:00 98.30 degrees Noam F Arturo Heart Rate 2021-10-21 08:17:00 83.00 /min Hillary en F Arturo Respiratory Rate 2021-10-21 08:17:00 20.00 /min Noam F Arturo BP Systolic 2020-10-12 08:18:00 106 mm[Hg] Step hen F Arturo BP Diastolic 2020-10-12 08:18:00 65 mm[Hg] Srinivasan phen F Arturo Weight Measured 2020-10-12 08:18:00 156.00 pounds Noam F Arturo Height Measured 2020-10-12 08:18:00 69.88 inches Noam F Arturo Body Temperature 2020-10-12 08:18:00 98.10 degrees Noam F Arturo Heart Rate 2020-10-12 08:18:00 65.00 /min Hillary en F Arturo Respiratory Rate 2020-10-12 08:18:00 20.00 /min Noam F Arturo BP Systolic 2020-07-16 15:51:00 110 mm[Hg] Step hen F Arturo BP Diastolic 2020-07-16 15:51:00 72 mm[Hg] Srinivasan phen F Arturo Weight Measured 2020-07-16 15:51:00 176.40 pounds Noam F Arturo Height Measured 2020-07-16 15:51:00 69.88 inches Noam F Arturo Body Temperature 2020-07-16 15:51:00 98.10 degrees Noam F Arturo Heart Rate 2020-07-16 15:51:00 86.00 /min Hillary en F Arturo Respiratory Rate 2020-07-16 15:51:00 18.00 /min Noam F Arturo BP Systolic 2017-09-06 13:27:00 126 mm[Hg] Step hen F Arturo BP Diastolic 2017-09-06 13:27:00 85 mm[Hg] Srinivasan phen F Arturo Weight Measured 2017-09-06 13:27:00 209.40 pounds Noam Morris Height Measured 2017-09-06 13:27:00 69.50 inches Noam Morris Body Temperature 2017-09-06 13:27:00 Noamcuauhtemoc Morris Heart Rate 2017-09-06 13:27:00 84.00 /min Hillary en F Arturo Respiratory Rate 2017-09-06 13:27:00 Noam Morris Procedures Procedure Date / Time Performed Performing Clinicia n Source TROPONIN I 2022-05-10 19:41:00 Agustina Vargas [facility] COMP. METABOLIC PANEL (00907) 2022-05-10 19:41:00 Agustina Vargas [facility] CBC WITH DIFF 2022-05-10 19:41:00 Agustina Vargas [facility] POCT TEST 2022-05-10 19:36:00 Lambert Coates [facility] URINALYSIS 2022-05-10 19:33:00 Agustina Vargas [facility] XR CHEST 1 VW 2022-05-10 18:57:00 Agustina Vargas [facility] CONSENT/REFUSAL FOR DIAGNOSIS AND TREATMENT 2022-05-10 17:47:06 Doctor Unassigned, [place] [facility] REFERRAL- REQUEST/RESPONSE 2020-07-16 05:01:00 Doctor Unassigned, [place] [facility] Plan of Care Planned Activity Planned Date Details Comments Source Goal Plan of Care Note [code = 94629-8] Goal Plan of Care Note [code = 39792-5] Goal Plan of Care Note [code = 65964-5] Goal Plan of Care Note [code = 32343-8] Goal Plan of Care Note [code = 14790-5] Goal Plan of Care Note [code = 29830-7] Goal Plan of Care Note [code = 47293-2] Goal Plan of Care Note [code = 35479-3] Goal Plan of Care Note [code = 65386-5] Goal Plan of Care Note [code = 17674-5] Goal Plan of Care Note [code = 04802-0] Goal Plan of Care Note [code = 57001-2] Goal Plan of Care Note [code = 35449-2] Goal Plan of Care Note [code = 68735-8] Goal Plan of Care Note [code = 28037-2] Goal Plan of Care Note [code = 73346-1] Goal Plan of Care Note [code = 24761-5] Goal Plan of Care Note [code = 16303-1] Goal Plan of Care Note [code = 40498-9] Goal Plan of Care Note [code = 85853-1] Goal Plan of Care Note [code = 62617-6] Goal Plan of Care Note [code = 33194-7] Goal Plan of Care Note [code = 58297-2] Goal Plan of Care Note [code = 08135-6] Goal Plan of Care Note [code = 08619-7] Goal Plan of Care Note [code = 00475-6] Goal Plan of Care Note [code = 89595-2] Goal Plan of Care Note [code = 14658-3] Goal Plan of Care Note [code = 92007-3] Encounters Start Date/Time End Date/Time Encounter Type Admission Type Attending [facility] Facility Care Department Encounter ID Source 2023-03-29 09:25:02 Outpatient Melisa Medrano [facility] [id number] [facility] 2023-03-05 09:20:01 Outpatient Melisa Medrano [facility] [id number] [facility] 2024-03-18 10:59:08 2024-03-18 10:59:08 Outpatient [facility] [id number] Noam Morris 2024-03-18 00:00:00 2024-03-18 00:00:00 Outpatient Visit [facility] [id number] Noam Morris 2023-09-17 08:14:30 2023-09-17 08:14:30 Outpatient [facility] [id number] Noam Morris 2023-09-17 00:00:00 2023-09-17 00:00:00 Outpatient Visit [facility] [id number] Noam Morris 2023-07-31 14:57:48 2023-07-31 14:57:48 Outpatient [facility] [id number] Noam Morris 2022-11-27 10:47:02 2022-11-27 10:47:02 Outpatient [facility] [id number] Noam Morris 2022-06-14 09:16:41 2022-06-14 09:16:41 Outpatient [facility] [id number] Noam Morris 2022-05-10 11:49:00 2022-05-10 15:21:00 Emergency X AGUSTINA VARGAS [facility] ERT [id number] [facility] 2022-05-10 11:49:00 2022-05-10 15:21:00 Emergency Agustina Vargasa [facility] [id number] [facility] 2022-05-10 09:48:26 2022-05-10 09:48:26 Outpatient [facility] [id number] Noam Morris 2022-05-08 00:00:00 2022-05-08 00:00:00 Outpatient AMBREEN[facility]KAROL [facility] [id number] [facility] 2022-05-04 00:00:00 2022-05-04 00:00:00 Outpatient AMBREEN_KAROL [facility] [id number] [facility] 2022-04-27 08:19:16 2022-04-27 08:19:16 Outpatient [facility] [id number] Noam Morris 2022-04-27 00:00:00 2022-04-27 00:00:00 Outpatient Visit [id number] 2022-04-26 10:52:41 2022-04-26 10:52:41 Outpatient [facility] [id number] Noam Morris 2022-04-12 15:52:09 2022-04-12 15:52:09 Outpatient [facility] [id number] Noam Morris 2022-04-12 00:00:00 2022-04-12 00:00:00 Outpatient Visit [id number] 2020-08-04 13:00:00 2020-08-04 13:00:00 Outpatient MIKE CARRENO [facility] [id number] [facility] 2020-07-26 00:00:00 2020-07-26 00:00:00 [facility] [id number] [facility] 2020-07-16 00:00:00 2020-07-16 00:00:00 Orders Only Doctor Unassigned, [place] [facility] [id number] [id number] [facility] 2019-12-19 14:40:00 2019-12-19 14:40:00 Outpatient Griselda ERICAJOSE RAUL LANCE [facility] [id number] [facility] Results Test Description Test Time Test Comments Results Result Co mments Source Noam MorrisHIV 1/2 4TH GEN, RFLX [id number] 00:00:00* Test Item Value Reference Range Interpretation Comme nts HIV 1/2 4TH GEN, RFLX CONF ( test code = 3514) NON-REACTIVE Noam [id number] 00:00:00* Test Item Value Reference Range Interpretation Comme nts RPR RESULT (test code = 3501) NON-REACTIVE RPR TITER (test code = 3500) NOT INDIC. TITER Noam MorrisTRICHOMONAS, URINE, [id number] 00:00:00* Test Item Value Reference Range Interpretation Comme nts TRICHOMONAS, NAAT, URINE (te st code = 19068) NEGATIVE Noam MorrisCT/NG, NAAT, [id number] 00:00:00* Test Item Value Reference Range Interpretation Comme nts CHLAMYDIA, NAAT, URINE (test code = 64668) NEGATIVE GONORRHEA, NAAT, URINE (test code = 36568) NEGATIVE Noam MorrisHERPES SIMPLEX AB, [id number] 00:00:00* Test Item Value Reference Range Interpretation Comme nts HERPES SIMPLEX AB, IgM (test code = 70033) 0.87 INDEX Noam MorrisTSH, THIRD [id number] 05:19:13* Test Item Value Reference Range Interpretation Comme nts TSH, THIRD GENERATION (test code = 2821) 1.810 UIU/ML 0.400-4.100 UNLESS OTHERWISE INDICATED, ALL TESTING PERFORMED AT [facility] [address] [place] [address] [employer]: LINNETTE NICHOLSON M.D. [place] NUMBER [id number] [facility]. [id number] COMPREHENSIVE METABOLIC [id number] 04:30:31* Test Item Value Reference Range Interpretation Comme nts GLUCOSE (test code = 2216) 88 MG/DL 70-99 BUN (test code = 2207) 8 MG/DL 6-20 CREATININE (test code = 2213) 0.76 MG/DL 0.60-1.30 eGFR (2020 CKD-EPI) (test code = 70644) 114 ML/MIN/1.73 >60 CALC BUN/CREAT (test code = 2234) 11 RATIO 6-28 SODIUM (test code = 223) 138 MEQ/L 133-146 POTASSIUM (test code = 2228) 4.1 MEQ/L 3.5-5.4 CHLORIDE (test code = 2214) 99 MEQ/L 95-107 CARBON DIOXIDE (test code = 2206) 23 MEQ/L 19-31 CALCIUM (test code = 220) 9.6 MG/DL 8.5-10.5 PROTEIN, TOTAL (test code = 222) 7.5 G/DL 6.1-8.3 ALBUMIN (test code = 2201) 4.7 G/DL 3.5-5.2 CALC GLOBULIN (test code = 2240) 2.8 G/DL 1.9-3.7 CALC A/G RATIO (test code = 223) 1.7 RATIO 1.0-2.6 BILIRUBIN, TOTAL (test code = 2206) 0.8 MG/DL <=1.2 ALKALINE PHOSPHATASE (test code = 2204) 76 U/L 38-117 AST (test code = 2218) 26 U/L 9-40 ALT (test code = 2219) 18 U/L 5-40 LIPID [id number] 04:30:31* Test Item Value Reference Range Interpretation Comme nts CHOLESTEROL (test code = 2210) 212 MG/DL <200 H TRIGLYCERIDES (test code = 2232) 76 MG/DL <150 HDL CHOLESTEROL (test code = 2220) 135 MG/DL >39 CALC LDL CHOL (test code = 223) 61 MG/DL <100 NOTE: CALCULATED LDL IS BASED ON MARYANN-DÍAZ METHOD WHICHINCLUDES ADJUSTABLE TRIGLYCERIDE:VLDL CHOLESTEROL RATIO.THIS FACTOR VARIES BY MEASURED TRIGLYCERIDE AND NON-HDLCHOLESTEROL CONCENTRATIONS WITH INCREASED CALCULATED LDL SEENIN HIGHER TRIGLYCERIDE OR LOWER NON-HDL SPECIMENS. FOR MOREINFORMATION, SEE CLIENT ANNOUNCEMENT AT [email or web address] RISK RATIO LDL/HDL (test code = 2238) 0.45 RATIO <3.22 HEMOGLOBIN [id number] 03:27:03* Test Item Value Reference Range Interpretation Comme nts HEMOGLOBIN A1c (test code = 33656) 5.2 % 4.2-5.6 CBC W/AUTO DIFF WITH [id number] 02:30:19* Test Item Value Reference Range Interpretation Comme nts WBC (test code = 1001) 4.9 K/UL 3.5-11.0 RBC (test code = 1002) 4.74 M/UL 3.80-5.40 HEMOGLOBIN (test code = 1003) 13.1 G/DL 11.5-15.5 HEMATOCRIT (test code = 1004) 40.0 % 34.0-45.0 MCV (test code = 1005) 84.4 fL 80.0-99.0 MCH (test code = 1006) 27.6 PG 25.0-33.0 MCHC (test code = 1007) 32.8 G/DL 31.0-36.0 RDW (test code = 1038) 14.9 % 11.5-15.0 NEUTROPHILS (test code = 1008) 68.1 % LYMPHOCYTES (test code = 1010) 21.5 % MONOCYTES (test code = 1011) 7.6 % EOSINOPHILS (test code = 1012) 1.8 % BASOPHILS (test code = 1013) 0.8 % IMMATURE GRANULOCYTES (test code = 1036) 0.2 % NUCLEATED RBCS (test code = 1065) 0.0 /100 WBC'S See_Comment [[employer]ated [employer]] The system which generated this result transmitted reference range: 0.0. The reference range was not used to interpret this result as normal/abnormal. PLATELET COUNT (test code = 1015) 321 K/UL 130-400 ABSOLUTE NEUTROPHILS (test code = 1066) 3.33 K/UL 1.50-7.50 ABSOLUTE LYMPHOCYTES (test code = 1067) 1.05 K/UL 1.00-4.00 ABSOLUTE MONOCYTES (test code = 1068) 0.37 K/UL 0.20-1.00 ABSOLUTE EOSINOPHILS (test code = 1040) 0.09 K/UL 0.00-0.50 ABSOLUTE BASOPHILS (test code = 1069) 0.04 K/UL 0.00-0.20 ABS IMMATURE GRANULOCYTES (test code = 1020) 0.01 K/UL 0.00-0.10 ABS NUCLEATED RBCS (test code = 24800) 0.00 K/UL 0.00-0.11 LIPID [id number] 00:00:00* Test Item Value Reference Range Interpretation Comme nts CHOLESTEROL (test code = 2210) 212 MG/DL TRIGLYCERIDES (test code = 2232) 76 MG/DL HDL CHOLESTEROL (test code = 2220) 135 MG/DL CALC LDL CHOL (test code = 2237) 61 MG/DL RISK RATIO LDL/HDL (test cod e = 2238) 0.45 RATIO Noam MorrisHEMOGLOBIN [id number] 00:00:00* Test Item Value Reference Range Interpretation Comme nts HEMOGLOBIN A1c (test code = 05699) 5.2 % Noam MorrisTSH, THIRD [id number] 00:00:00* Test Item Value Reference Range Interpretation Comme nts TSH, THIRD GENERATION (test code = 2821) 1.810 UIU/ML Noam MorrisCBC W/AUTO [id number] 00:00:00* Test Item Value Reference Range Interpretation Comme nts WBC (test code = 1001) 4.9 K/UL RBC (test code = 1002) 4.74 M/UL HEMOGLOBIN (test code = 1003) 13.1 G/DL HEMATOCRIT (test code = 1004) 40.0 % MCV (test code = 1005) 84.4 fL MCH (test code = 1006) 27.6 PG MCHC (test code = 1007) 32.8 G/DL RDW (test code = 1038) 14.9 % NEUTROPHILS (test code = 1008) 68.1 % LYMPHOCYTES (test code = 1010) 21.5 % MONOCYTES (test code = 1011) 7.6 % EOSINOPHILS (test code = 1012) 1.8 % BASOPHILS (test code = 1013) 0.8 % IMMATURE GRANULOCYTES (test code = 1036) 0.2 % NUCLEATED RBCS (test code = 1065) 0.0 /100WBC'S PLATELET COUNT (test code = 1015) 321 K/UL ABSOLUTE NEUTROPHILS (test c ode = 1066) 3.33 K/UL ABSOLUTE LYMPHOCYTES (test c ode = 1067) 1.05 K/UL ABSOLUTE MONOCYTES (test cod e = 1068) 0.37 K/UL ABSOLUTE EOSINOPHILS (test c ode = 1040) 0.09 K/UL ABSOLUTE BASOPHILS (test cod e = 1069) 0.04 K/UL ABS IMMATURE GRANULOCYTES (t est code = 1020) 0.01 K/UL ABS NUCLEATED RBCS (test cod e = 56513) 0.00 K/UL Noam Derek ArturoCOMPREHENSIVE METABOLIC [id number] 00:00:00* Test Item Value Reference Range Interpretation Comme nts GLUCOSE (test code = 2217) 88 MG/DL BUN (test code = 2208) 8 MG/DL CREATININE (test code = 2214) 0.76 MG/DL eGFR (2020 CKD-EPI) (test code = 94251) 114 ML/MIN/1.73 CALC BUN/CREAT (test code = 2235) 11 RATIO SODIUM (test code = 2231) 138 MEQ/L POTASSIUM (test code = 2228) 4.1 MEQ/L CHLORIDE (test code = 2215) 99 MEQ/L CARBON DIOXIDE (test code = 2206) 23 MEQ/L CALCIUM (test code = 2209) 9.6 MG/DL PROTEIN, TOTAL (test code = 2229) 7.5 G/DL ALBUMIN (test code = 2201) 4.7 G/DL CALC GLOBULIN (test code = 2240) 2.8 G/DL CALC A/G RATIO (test code = 2234) 1.7 RATIO BILIRUBIN, TOTAL (test code = 2207) 0.8 MG/DL ALKALINE PHOSPHATASE (test code = 2204) 76 U/L AST (test code = 2218) 26 U/L ALT (test code = 2219) 18 U/L Noam Reed AustinLIPID [id number] 00:00:00* Test Item Value Reference Range Interpretation Comme nts CHOLESTEROL (test code = 2210) 212 MG/DL TRIGLYCERIDES (test code = 2232) 76 MG/DL HDL CHOLESTEROL (test code = 2220) 135 MG/DL CALC LDL CHOL (test code = 2237) 61 MG/DL RISK RATIO LDL/HDL (test cod e = 2238) 0.45 RATIO Noam MorrisHEMOGLOBIN [id number] 00:00:00* Test Item Value Reference Range Interpretation Comme nts HEMOGLOBIN A1c (test code = 58109) 5.2 % Noam MorrisTSH, THIRD [id number] 00:00:00* Test Item Value Reference Range Interpretation Comme nts TSH, THIRD GENERATION (test code = 2821) 1.810 UIU/ML Noam MorrisCBC W/AUTO [id number] 00:00:00* Test Item Value Reference Range Interpretation Comme nts WBC (test code = 1001) 4.9 K/UL RBC (test code = 1002) 4.74 M/UL HEMOGLOBIN (test code = 1003) 13.1 G/DL HEMATOCRIT (test code = 1004) 40.0 % MCV (test code = 1005) 84.4 fL MCH (test code = 1006) 27.6 PG MCHC (test code = 1007) 32.8 G/DL RDW (test code = 1038) 14.9 % NEUTROPHILS (test code = 1008) 68.1 % LYMPHOCYTES (test code = 1010) 21.5 % MONOCYTES (test code = 1011) 7.6 % EOSINOPHILS (test code = 1012) 1.8 % BASOPHILS (test code = 1013) 0.8 % IMMATURE GRANULOCYTES (test code = 1036) 0.2 % NUCLEATED RBCS (test code = 1065) 0.0 /100WBC'S PLATELET COUNT (test code = 1015) 321 K/UL ABSOLUTE NEUTROPHILS (test c ode = 1066) 3.33 K/UL ABSOLUTE LYMPHOCYTES (test c ode = 1067) 1.05 K/UL ABSOLUTE MONOCYTES (test cod e = 1068) 0.37 K/UL ABSOLUTE EOSINOPHILS (test c ode = 1040) 0.09 K/UL ABSOLUTE BASOPHILS (test cod e = 1069) 0.04 K/UL ABS IMMATURE GRANULOCYTES (t est code = 1020) 0.01 K/UL ABS NUCLEATED RBCS (test cod e = 90879) 0.00 K/UL Noam MorrisCOMPREHENSIVE METABOLIC [id number] 00:00:00* Test Item Value Reference Range Interpretation Comme nts GLUCOSE (test code = 7) 88 MG/DL BUN (test code = 2208) 8 MG/DL CREATININE (test code = 2214) 0.76 MG/DL eGFR (2020 CKD-EPI) (test code = 37696) 114 ML/MIN/1.73 CALC BUN/CREAT (test code = 2235) 11 RATIO SODIUM (test code = 2231) 138 MEQ/L POTASSIUM (test code = 2228) 4.1 MEQ/L CHLORIDE (test code = 2215) 99 MEQ/L CARBON DIOXIDE (test code = 2206) 23 MEQ/L CALCIUM (test code = 2209) 9.6 MG/DL PROTEIN, TOTAL (test code = 222) 7.5 G/DL ALBUMIN (test code = 2201) 4.7 G/DL CALC GLOBULIN (test code = 2240) 2.8 G/DL CALC A/G RATIO (test code = 2234) 1.7 RATIO BILIRUBIN, TOTAL (test code = 2207) 0.8 MG/DL ALKALINE PHOSPHATASE (test code = 2204) 76 U/L AST (test code = 2218) 26 U/L ALT (test code = 2219) 18 U/L Noam F Zully [id number] 20:33:25* Test Item Value Reference Range Interpretation Comments TROPONIN I (test code = 4917561198) 0.004 ng/mL See_Comment [Automated message] The system which generated this result transmitted reference range: <=0.034. The reference range was not used to interpret this result as normal/abnormal. ZARI (test code = ZARI) Reference (Normal) Range (defined by the 99th percentile reference limit): <= 0.034 ng/mL Note: Cardiac troponin begins to rise 3-4 hours after the onset of ischemia. Repeat in 4-6 hours if the sample was drawn within 3-4 hours of the onset of the symptom and found normal. Diagnosis of myocardial injury is made with acute changes in cTn concentrations with at least one serial sample above the 99th percentile upper reference limit (URL), taken together with the patient's clinical presentation. Biotin has been reported to cause a negative bias, interpret results relative to patient's use of biotin. Lab Interpretation (test code = 84544-5) [facility] ([id number] 20:21:22* Test Item Value Reference Range Interpretation Comme nts NA (test code = 4612610234) 138 mmol/L 135-145 K (test code = 2957364754) 5.3 mmol/L 3.5-5.0 H Slight hemolysis CL (test code = 4755266964) 103 mmol/L 98-108 CO2 TOTAL (test code = 7795274678) 29 mmol/L 23-31 AGAP (test code = 3457869954) 2-16 BUN (test code = 9161880327) 16 mg/dL 7-23 Slight hemolysis GLUCOSE (test code = 2757608887) 80 mg/dL 70-110 CREATININE (test code = 5849740159) 0.63 mg/dL 0.50-1.04 TOTAL BILI (test code = 3032734514) 0.6 mg/dL 0.1-1.1 CALCIUM (test code = 3942448316) 8.7 mg/dL 8.6-10.6 T PROTEIN (test code = 1141946870) 7.3 g/dL 6.3-8.2 ALBUMIN (test code = 7157267222) 4.3 g/dL 3.5-5.0 ALK PHOS (test code = 3816506615) 41 U/L 34-122 Slight hemolysis ALTv (test code = 1742-6) 17 U/L 5-35 AST(SGOT) (test code = 1542634693) 34 U/L 13-40 Slight hemolysis eGFR (test code = 2233011448) mL/min/1.73m2 ZARI (test code = ZARI) Association of Glomerular Filtration Rate (GFR) and Staging of Kidney Disease* + -----+ --------+ +| GFR (mL/min/1.73 m2) ?| With Kidney Damage ?| ?Without Kidney Damage+ +------- +---- --+| ?>90 ?| ?Stage one ?| ? Normal ?+ ------+ ---------+--------- +| ?60-89 ?| ?Stage two ?| ? Decreased GFR ? + -----+ --------+ +| ?30-59 ?| ?Stage three ?| ? Stage three ? + -----+ --------+ +| ?15-29 ?| ?Stage four ? | ? Stage four ?+ ------+ ---------+--------- +| ?<15 (or dialysis) ? ?| ?Stage five ? | ? Stage five ?+ ------+ ---------+--------- + *Each stage assumes the associated GFR level has been in effect for at least three months. ?Stages 1 to 5, with or without kidney disease, indicate chronic kidney disease. Notes: Determination of stages one and two (with eGFR >59mL/min/1.73 m2) requires estimation of kidney damage for at least three months as defined by structural or functional abnormalities of the kidney, manifested by either:Pathological abnormalities or Markers of kidney damage (including abnormalities in the composition of the blood or urine or abnormalities in imaging tests). Lab Interpretation (test code = 47909-3) Abnormal [facility] WITH [id number] 20:06:59* Test Item Value Reference Range Interpretation Comme nts WBC (test code = 6690-2) See_Comment [Imagistx] The system which generated this result transmitted reference range: 4.30 - 11.10 10*3/?L. The reference range was not used to interpret this result as normal/abnormal. RBC (test code = 789-8) See_Comment [Imagistx] The system which generated this result transmitted reference range: 3.93 - 5.25 10*6/?L. The reference range was not used to interpret this result as normal/abnormal. HGB (test code = 718-7) 12.6 g/dL 11.6-15.0 HCT (test code = 4544-3) 38.6 % 35.7-45.2 MCV (test code = 787-2) 87.3 fL 80.6-95.5 MCH (test code = 785-6) 28.5 pg 25.9-32.8 MCHC (test code = 786-4) 32.6 g/dL 31.6-35.1 RDW-SD (test code = 81808-7) 47.7 fL 39.0-49.9 RDW-CV (test code = 788-0) 14.8 % 12.0-15.5 PLT (test code = 777-3) See_Comment [Automated messa ge] The system which generated this result transmitted reference range: 166 - 358 10*3/?L. The reference range was not used to interpret this result as normal/abnormal. MPV (test code = 79624-8) 10.6 fL 9.5-12.9 NRBC/100 WBC (test code = 8876334567) See_Comment [Automated me ssage] The system which generated this result transmitted reference range: 0.0 - 10.0 /100 WBCs. The reference range was not used to interpret this result as normal/abnormal. NRBC x10^3 (test code = 7428522354) See_Comment [Automated me ssage] The system which generated this result transmitted reference range: 10*3/?L. The reference range was not used to interpret this result as normal/abnormal. GRAN MAT (NEUT) % (test code = 770-8) 60.9 % IMM GRAN % (test code = 2864765962) 0.30 % LYMPH % (test code = 736-9) 28.6 % MONO % (test code = 5905-5) 8.5 % EOS % (test code = 713-8) 1.2 % BASO % (test code = 706-2) 0.5 % GRAN MAT x10^3(ANC) (test code = 4666749790) 4.72 10*3/uL 1.88-7.09 IMM GRAN x10^3 (test code = 9312824691) 0.00-0.06 LYMPH x10^3 (test code = 731-0) 2.21 10*3/uL 1.32-3.29 MONO x10^3 (test code = 742-7) 0.66 10*3/uL 0.33-0.92 EOS x10^3 (test code = 711-2) 0.09 10*3/uL 0.03-0.39 BASO x10^3 (test code = 704-7) 0.04 10*3/uL 0.01-0.07 [facility] [id number] 19:36:00* Test Item Value Reference Range Interpretation Comme nts POCT PREG (test code = 1605) NEGATIVE On board controls acceptable with C Line (test code = 3574) PRESENT POCT PREG LOT # (test code = 3575) [id number] POCT PREG TEST DATE ( test code = 3576) 07/29/23 Lab Interpretation (test cod e = 58215-6) Normal [facility], THIRD [id number] 06:52:33* Test Item Value Reference Range Interpretation Comme nts TSH, THIRD GENERATION (test code = 2821) 1.770 UIU/ML 0.400-4.100 UNLESS OTHERWISE INDICATED, ALL TESTING PERFORMED [facility] [employer] [employer] [address] [place] [address] SUPERVISOR GARAGE: RY HILARIO M.D. CLIA NUMBER [id number] [facility]. [id number] COMPREHENSIVE METABOLIC [id number] 05:26:35* Test Item Value Reference Range Interpretation Comme nts GLUCOSE (test code = 2217) 85 MG/DL 70-99 BUN (test code = 2208) 11 MG/DL 6-20 CREATININE (test code = 2214) 0.78 MG/DL 0.60-1.30 eGFR (2020 CKD-EPI) (test code = 12348) 111 ML/MIN/1.73 >60 CALC BUN/CREAT (test code = 2235) 14 RATIO 6-28 SODIUM (test code = 2231) 140 MEQ/L 133-146 POTASSIUM (test code = 2228) 4.3 MEQ/L 3.5-5.4 CHLORIDE (test code = 2215) 101 MEQ/L 95-107 CARBON DIOXIDE (test code = 2206) 27 MEQ/L 19-31 CALCIUM (test code = 2209) 9.8 MG/DL 8.5-10.5 PROTEIN, TOTAL (test code = 2229) 7.5 G/DL 6.1-8.3 ALBUMIN (test code = 2201) 4.4 G/DL 3.5-5.2 CALC GLOBULIN (test code = 2240) 3.1 G/DL 1.9-3.7 CALC A/G RATIO (test code = 2234) 1.4 RATIO 1.0-2.6 BILIRUBIN, TOTAL (test code = 2207) 0.6 MG/DL See_Comment [Automated me ssage] The system which generated this result transmitted reference range: <=1.2. The reference range was not used to interpret this result as normal/abnormal. ALKALINE PHOSPHATASE (test code = 2204) 66 U/L 40-116 AST (test code = 2218) 18 U/L 9-40 ALT (test code = 2219) 14 U/L 5-40 CBC W/AUTO DIFF WITH [id number] 02:20:38* Test Item Value Reference Range Interpretation Comme nts WBC (test code = 1001) 6.1 K/UL 3.5-11.0 RBC (test code = 1002) 4.64 M/UL 3.80-5.40 HEMOGLOBIN (test code = 1003) 13.3 G/DL 11.5-15.5 HEMATOCRIT (test code = 1004) 40.0 % 34.0-45.0 MCV (test code = 1005) 86.2 fL 80.0-99.0 MCH (test code = 1006) 28.7 PG 25.0-33.0 MCHC (test code = 1007) 33.3 G/DL 31.0-36.0 RDW (test code = 1038) 15.1 % 11.5-15.0 H NEUTROPHILS (test code = 1008) 62.0 % LYMPHOCYTES (test code = 1010) 26.7 % MONOCYTES (test code = 1011) 9.1 % EOSINOPHILS (test code = 1012) 1.2 % BASOPHILS (test code = 1013) 0.8 % IMMATURE GRANULOCYTES (test code = 1036) 0.2 % NUCLEATED RBCS (test code = 1065) 0.0 /100 WBC'S See_Comment [Automated messa ge] The system which generated this result transmitted reference range: 0.0. The reference range was not used to interpret this result as normal/abnormal. PLATELET COUNT (test code = 1015) 321 K/UL 130-400 ABSOLUTE NEUTROPHILS (test code = 1066) 3.76 K/UL 1.50-7.50 ABSOLUTE LYMPHOCYTES (test code = 1067) 1.62 K/UL 1.00-4.00 ABSOLUTE MONOCYTES (test code = 1068) 0.55 K/UL 0.20-1.00 ABSOLUTE EOSINOPHILS (test code = 1040) 0.07 K/UL 0.00-0.50 ABSOLUTE BASOPHILS (test code = 1069) 0.05 K/UL 0.00-0.20 ABS IMMATURE GRANULOCYTES (test code = 1020) 0.01 K/UL 0.00-0.10 ABS NUCLEATED RBCS (test code = 48882) 0.00 K/UL 0.00-0.11 TSH, THIRD [id number] 00:00:00* Test Item Value Reference Range Interpretation Comme nts TSH, THIRD GENERATION (test code = 2821) 1.770 UIU/ML Noam MorrisCBC W/AUTO [id number] 00:00:00* Test Item Value Reference Range Interpretation Comme nts WBC (test code = 1001) 6.1 K/UL RBC (test code = 1002) 4.64 M/UL HEMOGLOBIN (test code = 1003) 13.3 G/DL HEMATOCRIT (test code = 1004) 40.0 % MCV (test code = 1005) 86.2 fL MCH (test code = 1006) 28.7 PG MCHC (test code = 1007) 33.3 G/DL RDW (test code = 1038) 15.1 % NEUTROPHILS (test code = 1008) 62.0 % LYMPHOCYTES (test code = 1010) 26.7 % MONOCYTES (test code = 1011) 9.1 % EOSINOPHILS (test code = 1012) 1.2 % BASOPHILS (test code = 1013) 0.8 % IMMATURE GRANULOCYTES (test code = 1036) 0.2 % NUCLEATED RBCS (test code = 1065) 0.0 /100WBC'S PLATELET COUNT (test code = 1015) 321 K/UL ABSOLUTE NEUTROPHILS (test c ode = 1066) 3.76 K/UL ABSOLUTE LYMPHOCYTES (test c ode = 1067) 1.62 K/UL ABSOLUTE MONOCYTES (test cod e = 1068) 0.55 K/UL ABSOLUTE EOSINOPHILS (test c ode = 1040) 0.07 K/UL ABSOLUTE BASOPHILS (test cod e = 1069) 0.05 K/UL ABS IMMATURE GRANULOCYTES (t est code = 1020) 0.01 K/UL ABS NUCLEATED RBCS (test cod e = 34984) 0.00 K/UL Noam Reed ArturoCOMPREHENSIVE METABOLIC [id number] 00:00:00* Test Item Value Reference Range Interpretation Comme nts GLUCOSE (test code = 2217) 85 MG/DL BUN (test code = 2208) 11 MG/DL CREATININE (test code = 2214) 0.78 MG/DL eGFR (2020 CKD-EPI) (test code = 38232) 111 ML/MIN/1.73 CALC BUN/CREAT (test code = 2235) 14 RATIO SODIUM (test code = 2231) 140 MEQ/L POTASSIUM (test code = 2228) 4.3 MEQ/L CHLORIDE (test code = 2215) 101 MEQ/L CARBON DIOXIDE (test code = 2206) 27 MEQ/L CALCIUM (test code = 2209) 9.8 MG/DL PROTEIN, TOTAL (test code = 2229) 7.5 G/DL ALBUMIN (test code = 2201) 4.4 G/DL CALC GLOBULIN (test code = 2240) 3.1 G/DL CALC A/G RATIO (test code = 2234) 1.4 RATIO BILIRUBIN, TOTAL (test code = 2207) 0.6 MG/DL ALKALINE PHOSPHATASE (test code = 2204) 66 U/L AST (test code = 2218) 18 U/L ALT (test code = 2219) 14 U/L Noam Linares, THIRD [id number] 00:00:00* Test Item Value Reference Range Interpretation Comme nts TSH, THIRD GENERATION (test code = 2821) 1.770 UIU/ML Noam MorrisCBC W/AUTO [id number] 00:00:00* Test Item Value Reference Range Interpretation Comme nts WBC (test code = 1001) 6.1 K/UL RBC (test code = 1002) 4.64 M/UL HEMOGLOBIN (test code = 1003) 13.3 G/DL HEMATOCRIT (test code = 1004) 40.0 % MCV (test code = 1005) 86.2 fL MCH (test code = 1006) 28.7 PG MCHC (test code = 1007) 33.3 G/DL RDW (test code = 1038) 15.1 % NEUTROPHILS (test code = 1008) 62.0 % LYMPHOCYTES (test code = 1010) 26.7 % MONOCYTES (test code = 1011) 9.1 % EOSINOPHILS (test code = 1012) 1.2 % BASOPHILS (test code = 1013) 0.8 % IMMATURE GRANULOCYTES (test code = 1036) 0.2 % NUCLEATED RBCS (test code = 1065) 0.0 /100WBC'S PLATELET COUNT (test code = 1015) 321 K/UL ABSOLUTE NEUTROPHILS (test c ode = 1066) 3.76 K/UL ABSOLUTE LYMPHOCYTES (test c ode = 1067) 1.62 K/UL ABSOLUTE MONOCYTES (test cod e = 1068) 0.55 K/UL ABSOLUTE EOSINOPHILS (test c ode = 1040) 0.07 K/UL ABSOLUTE BASOPHILS (test cod e = 1069) 0.05 K/UL ABS IMMATURE GRANULOCYTES (t est code = 1020) 0.01 K/UL ABS NUCLEATED RBCS (test cod e = 49535) 0.00 K/UL Noam MorrisCOMPREHENSIVE METABOLIC [id number] 00:00:00* Test Item Value Reference Range Interpretation Comme nts GLUCOSE (test code = 2217) 85 MG/DL BUN (test code = 2208) 11 MG/DL CREATININE (test code = 2214) 0.78 MG/DL eGFR (2020 CKD-EPI) (test code = 14241) 111 ML/MIN/1.73 CALC BUN/CREAT (test code = 2235) 14 RATIO SODIUM (test code = 2231) 140 MEQ/L POTASSIUM (test code = 2228) 4.3 MEQ/L CHLORIDE (test code = 2215) 101 MEQ/L CARBON DIOXIDE (test code = 2206) 27 MEQ/L CALCIUM (test code = 2209) 9.8 MG/DL PROTEIN, TOTAL (test code = 2229) 7.5 G/DL ALBUMIN (test code = 2201) 4.4 G/DL CALC GLOBULIN (test code = 2240) 3.1 G/DL CALC A/G RATIO (test code = 2234) 1.4 RATIO BILIRUBIN, TOTAL (test code = 2207) 0.6 MG/DL ALKALINE PHOSPHATASE (test code = 2204) 66 U/L AST (test code = 2218) 18 U/L ALT (test code = 2219) 14 U/L Noam Reed ArturoCT/NG, NAAT, [id number] 17:20:55* Test Item Value Reference Range Interpretation Comme nts GONORRHEA, NAAT (test code = 84218) NEGATIVE NEGATIVE IMPORTANT NO FELICIANO: SEE ANNOUNCEMENT AT [email or web address] Note: Assay methodology is nucleic acid amplification by commercial lines account manager mediated amplification (TMA) utilizing the Aptima Combo 2 Assay. CHLAMYDIA, NAAT (test code = 30589) NEGATIVE NEGATIVE IMPORTANT NO FELICIANO: SEE ANNOUNCEMENT AT [email or web address] Note: Assay methodology is nucleic acid amplification by commercial lines account manager mediated amplification (TMA) utilizing the Aptima Combo 2 Assay. HIV 1/2 4TH GEN, RFLX [id number] 05:03:19* Test Item Value Reference Range Interpretation Comme nts HIV 1/2 4TH GEN, RFLX CONF ( test code = 3514) NON-REACTIVE NON-REACTIVE HEPATITIS PANEL, [id number] 05:03:19* Test Item Value Reference Range Interpretation Comme nts HEPATITIS A IgM (test code = 51287) NON-REACTIVE NON-REACTIVE HEPATITIS B CORE IgM (test code = 4644) NON-REACTIVE NON-REACTIVE HEPATITIS B SURF AG (test code = 2739) NON-REACTIVE NON-REACTIVE HEPATITIS C ANTIBODY (test code = 4675) NON-REACTIVE NON-REACTIVE INTERPRETATION HEPATITIS A: (test code = 2552) (NOTE) Hepatitis A sero logy shows no evidence of acute hepatitis A. INTERPRETATION HEPATITIS B: (test code = 58658) (NOTE) Hepatitis B sero logy shows no evidence of acute hepatitis B andno indication of exposure to hepatitis B virus in the previous mark eight months. INTERPRETATION HEPATITIS C: (test code = 65468) (NOTE) Hepatitis C sero logy shows no evidence of exposure to hepatitisC virus at this time. It can take up to 12 months after exposure tothe hepatitis C virus for antibodies to become detectable in the blood in certain patients. UNLESS OTHERWISE INDICATED, ALL TESTING PERFORMED [facility] [address] [place] [address] SUPERVISOR GARAGE: RY HILARIO M.D. CLIA NUMBER [id number] [facility] [place]. [id number] 03:10:59* Test Item Value Reference Range Interpretation Comme nts RPR RESULT (test code = 3501) NON-REACTIVE NON-REACTIVE RPR TITER (test code = 3500) NOT INDIC. TITER NOT INDIC. CT/NG, TMA, [id number] 00:00:00* Test Item Value Reference Range Interpretation Comme nts GONORRHEA, NAAT (test code = 15554) NEGATIVE CHLAMYDIA, NAAT (test code = 26250) NEGATIVE Noam MorrisACUTE HEPATITIS [id number] 00:00:00* Test Item Value Reference Range Interpretation Comme nts HEPATITIS A IgM (test code = 71682) NON-REACTIVE HEPATITIS B CORE IgM (test c ode = 4644) NON-REACTIVE HEPATITIS B SURF AG (test co de = 2739) NON-REACTIVE HEPATITIS C ANTIBODY (test c ode = 4675) NON-REACTIVE INTERPRETATION HEPATITIS A: (test code = 2552) (NOTE) INTERPRETATION HEPATITIS B: (test code = 95447) (NOTE) INTERPRETATION HEPATITIS C: (test code = 63636) (NOTE) Noam MorrisHIV 1/2 4TH GEN, RFLX [id number] 00:00:00* Test Item Value Reference Range Interpretation Comme nts HIV 1/2 4TH GEN, RFLX CONF ( test code = 3514) NON-REACTIVE Noam [id number] 00:00:00* Test Item Value Reference Range Interpretation Comme nts RPR RESULT (test code = 3501) NON-REACTIVE RPR TITER (test code = 3500) NOT INDIC. TITER Noam MorrisCT/NG, TMA, [id number] 00:00:00* Test Item Value Reference Range Interpretation Comme nts GONORRHEA, NAAT (test code = 64559) NEGATIVE CHLAMYDIA, NAAT (test code = 29616) NEGATIVE Noam MorrisHIV 1/2 4TH GEN, RFLX [id number] 00:00:00* Test Item Value Reference Range Interpretation Comme nts HIV 1/2 4TH GEN, RFLX CONF ( test code = 3514) NON-REACTIVE ACUTE HEPATITIS [id number] 00:00:00* Test Item Value Reference Range Interpretation Comme nts HEPATITIS A IgM (test code = 47612) NON-REACTIVE HEPATITIS B CORE IgM (test c ode = 4644) NON-REACTIVE HEPATITIS B SURF AG (test co de = 2739) NON-REACTIVE HEPATITIS C ANTIBODY (test c ode = 4675) NON-REACTIVE INTERPRETATION HEPATITIS A: (test code = 2552) (NOTE) INTERPRETATION HEPATITIS B: (test code = 12159) (NOTE) INTERPRETATION HEPATITIS C: (test code = 37577) (NOTE) Noam [id number] 00:00:00* Test Item Value Reference Range Interpretation Comme nts RPR RESULT (test code = 3501) NON-REACTIVE RPR TITER (test code = 3500) NOT INDIC. TITER CT/NG, TMA, [id number] 00:00:00* Test Item Value Reference Range Interpretation Comme nts GONORRHEA, NAAT (test code = 46283) NEGATIVE CHLAMYDIA, NAAT (test code = 30400) NEGATIVE ACUTE HEPATITIS [id number] 00:00:00* Test Item Value Reference Range Interpretation Comme nts HEPATITIS A IgM (test code = 48977) NON-REACTIVE HEPATITIS B CORE IgM (test c ode = 4644) NON-REACTIVE HEPATITIS B SURF AG (test co de = 2739) NON-REACTIVE HEPATITIS C ANTIBODY (test c ode = 4675) NON-REACTIVE INTERPRETATION HEPATITIS A: (test code = 2552) (NOTE) INTERPRETATION HEPATITIS B: (test code = 96420) (NOTE) INTERPRETATION HEPATITIS C: (test code = 02318) (NOTE) HIV 1/2 4TH GEN, RFLX [id number] 00:00:00* Test Item Value Reference Range Interpretation Comme nts HIV 1/2 4TH GEN, RFLX CONF ( test code = 3514) NON-REACTIVE Noam [id number] 00:00:00* Test Item Value Reference Range Interpretation Comme nts RPR RESULT (test code = 3501) NON-REACTIVE RPR TITER (test code = 3500) NOT INDIC. TITER Noam [id number] 00:00:00* Test Item Value Reference Range Interpretation Comme nts TSH, THIRD GENERATION (test code = 2821) 0.934 UIU/ML Noam MorrisCBC W/AUTO [id number] 00:00:00* Test Item Value Reference Range Interpretation Comme nts WBC (test code = 1001) 9.2 K/UL [...] code = 1015) 307 K/UL CBC W/AUTO [id number] 00:00:00* Test Item Value Reference Range Interpretation Comme nts WBC (test code = 1001) 9.2 K/UL [...] COUNT (test code = 1015) 307 K/UL Noam Reed ArturoCOMPREHENSIVE METABOLIC [id number] 00:00:00* Test Item Value Reference Range Interpretation Comme nts GLUCOSE (test code = 2217) 78 MG/DL BUN (test code = 2208) 10 MG/DL CREATININE (test code = 2214) 0.78 MG/DL eGFR AMER. (test cod e = 04728) 128 ML/MIN/1.73 eGFR NON- AMER. (test code = 22046) 110 ML/MIN/1.73 CALC BUN/CREAT (test code = 2235) 13 RATIO SODIUM (test code = 2231) 137 MEQ/L POTASSIUM (test code = 2228) 3.7 MEQ/L CHLORIDE (test code = 2215) 99 MEQ/L CARBON DIOXIDE (test code = 2206) 25 MEQ/L CALCIUM (test code = 2209) 9.4 MG/DL PROTEIN, TOTAL (test code = 2229) 7.8 G/DL ALBUMIN (test code = 2201) 4.8 G/DL CALC GLOBULIN (test code = 2240) 3.0 G/DL CALC A/G RATIO (test code = 2234) 1.6 RATIO BILIRUBIN, TOTAL (test code = 2207) 0.3 MG/DL ALKALINE PHOSPHATASE (test code = 2204) 60 U/L AST (test code = 2218) 38 U/L ALT (test code = 2219) 20 U/L COMPREHENSIVE METABOLIC [id number] 00:00:00* Test Item Value Reference Range Interpretation Comme nts GLUCOSE (test code = 2217) 78 MG/DL BUN (test code = 2208) 10 MG/DL CREATININE (test code = 2214) 0.78 MG/DL eGFR AMER. (test cod e = 82313) 128 ML/MIN/1.73 eGFR NON- AMER. (test code = 66545) 110 ML/MIN/1.73 CALC BUN/CREAT (test code = 2235) 13 RATIO SODIUM (test code = 2231) 137 MEQ/L POTASSIUM (test code = 2228) 3.7 MEQ/L CHLORIDE (test code = 2215) 99 MEQ/L CARBON DIOXIDE (test code = 2206) 25 MEQ/L CALCIUM (test code = 2209) 9.4 MG/DL PROTEIN, TOTAL (test code = 2229) 7.8 G/DL ALBUMIN (test code = 2201) 4.8 G/DL CALC GLOBULIN (test code = 2240) 3.0 G/DL CALC A/G RATIO (test code = 2234) 1.6 RATIO BILIRUBIN, TOTAL (test code = 2207) 0.3 MG/DL ALKALINE PHOSPHATASE (test code = 2204) 60 U/L AST (test code = 2218) 38 U/L ALT (test code = 2219) 20 U/L Noam [id number] 00:00:00* Test Item Value Reference Range Interpretation Comme nts TSH, THIRD GENERATION (test code = 2821) 0.934 UIU/ML [id number] 00:00:00* Test Item Value Reference Range Interpretation Comme nts TSH, THIRD GENERATION (test code = 2821) 0.934 UIU/ML [facility] W/AUTO [id number] 00:00:00* Test Item Value Reference Range Interpretation Comme nts WBC (test code = 1001) 9.2 K/UL [...] code = 1015) 307 K/UL COMPREHENSIVE METABOLIC [id number] 00:00:00* Test Item Value Reference Range Interpretation Comme nts GLUCOSE (test code = 2217) 78 MG/DL BUN (test code = 2208) 10 MG/DL CREATININE (test code = 2214) 0.78 MG/DL eGFR AMER. (test cod e = 07588) 128 ML/MIN/1.73 eGFR NON- AMER. (test code = 33628) 110 ML/MIN/1.73 CALC BUN/CREAT (test code = 2235) 13 RATIO SODIUM (test code = 2231) 137 MEQ/L POTASSIUM (test code = 2228) 3.7 MEQ/L CHLORIDE (test code = 2215) 99 MEQ/L CARBON DIOXIDE (test code = 2206) 25 MEQ/L CALCIUM (test code = 2209) 9.4 MG/DL PROTEIN, TOTAL (test code = 2229) 7.8 G/DL ALBUMIN (test code = 2201) 4.8 G/DL CALC GLOBULIN (test code = 2240) 3.0 G/DL CALC A/G RATIO (test code = 2234) 1.6 RATIO BILIRUBIN, TOTAL (test code = 2207) 0.3 MG/DL ALKALINE PHOSPHATASE (test code = 2204) 60 U/L AST (test code = 2218) 38 U/L ALT (test code = 2219) 20 U/L [id number] 00:00:00* Test Item Value Reference Range Interpretation Comme nts TSH, THIRD GENERATION (test code = 2821) 0.934 UIU/ML CBC W/AUTO [id number] 00:00:00* Test Item Value Reference Range Interpretation Comme nts WBC (test code = 1001) 9.2 K/UL [...] COUNT (test code = 1015) 307 K/UL Noam Reed AustinCOMPREHENSIVE METABOLIC [id number] 00:00:00* Test Item Value Reference Range Interpretation Comme nts GLUCOSE (test code = 2217) 78 MG/DL BUN (test code = 2208) 10 MG/DL CREATININE (test code = 2214) 0.78 MG/DL eGFR AMER. (test cod e = 17220) 128 ML/MIN/1.73 eGFR NON- AMER. (test code = 03769) 110 ML/MIN/1.73 CALC BUN/CREAT (test code = 2235) 13 RATIO SODIUM (test code = 2231) 137 MEQ/L POTASSIUM (test code = 2228) 3.7 MEQ/L CHLORIDE (test code = 2215) 99 MEQ/L CARBON DIOXIDE (test code = 2206) 25 MEQ/L CALCIUM (test code = 2209) 9.4 MG/DL PROTEIN, TOTAL (test code = 2229) 7.8 G/DL ALBUMIN (test code = 2201) 4.8 G/DL CALC GLOBULIN (test code = 2240) 3.0 G/DL CALC A/G RATIO (test code = 2234) 1.6 RATIO BILIRUBIN, TOTAL (test code = 2207) 0.3 MG/DL ALKALINE PHOSPHATASE (test code = 2204) 60 U/L AST (test code = 2218) 38 U/L ALT (test code = 2219) 20 U/L Noam Morris"
[2024-04-19] MEDS ORDERED: ZIPRASIDONE MESYLA 20 MG/VIAL IM ONE (19:54)
[2024-04-19] MEDS ORDERED: WATER FOR INJ,STERILE 20 ML ONE (19:55)
[2024-04-19 20:25] LABS: Absolute Monocytes 0.2 K/uL (0.1-1.3); Absolute Neutrophil 3.9 K/uL (1.8-8.0); Basophils % 0.5 % (0-1.3); Eosinophils % 0.2 % (0-4.4); Hematocrit 38.7 % (36.0-45.0); Hemoglobin 12.2 g/dL (12.0-15.0); Lymphocytes % 18.6 % (15.3-44.8); MCH 26.3 pg (27.0-35.0); MCHC 31.6 g/dL (32.0-36.0); MCV 83.4 fL (80-100); MPV 7.3 fL (7.6-11.3); Monocytes % 4.7 % (3.3-12.3); Platelets 371 thou/uL (152-406); RBC Red Blood Cell Count 4.65 M/uL (3.86-4.86); Red Cell Distribution Width 19.6 % (12.1-15.2)
[2024-04-19 20:28] LABS: PT Prothrombin Time 10.8 SECONDS (9.4-12.5); Protime INR 0.96
[2024-04-19 20:59] LABS: ALT/SGPT 38 U/L (13-56); AST/SGOT 50 U/L (15-37); Albumin 3.7 g/dL (3.4-5.0); Albumin/Globulin Ratio 0.9 (1.1-1.8); Alkaline Phosphatase 70 U/L (45-117); Anion Gap 11.7 mEq/L (5.0-15.0); BUN Blood Urea Nitrogen 7 mg/dL (7-18); Bicarbonate 27 mEq/L (21-32); Bilirubin Direct < 0.2 mg/dL (0-0.2); Bilirubin Indirect, Calculated 0.1 mg/dL (0.2-0.8); Bilirubin Total 0.3 mg/dL (0.2-1.0); Globulin 4.1 g/dL (2.3-3.5); Glomerular Filtration Rate 117 ml/min (=/>90); Glucose Level 87 mg/dL (74-106); Potassium 3.7 mEq/L (3.5-5.1); Protein, Total 7.8 g/dL (6.4-8.2); Sodium Level 140 mEq/L (136-145)
[2024-04-19] MEDS ORDERED: LORazepam 2 MG/ML VIAL ONE (22:01)
[2024-04-20 01:57] LABS: Specific Gravity 1.007 (1.005-1.030); Sqamous Epithelial <5 /HPF (None Seen); Urine Bacteria <20 /HPF (<20); Urine Bilirubin NEGATIVE (Negative); Urine Blood Negative (Negative); Urine Clarity Turbid (Clear); Urine Color Colorless (Yellow); Urine Crystals Unidentified Few /HPF (None Seen); Urine Culture Reflex Order NOT NEEDED; Urine Glucose NEGATIVE (Negative); Urine Ketones 1+ (Negative); Urine Microscopic Reflex YN ORDER UMIC; Urine Mucus Slight /HPF (None Seen); Urine Nitrite NEGATIVE (Negative); Urine Protein NEGATIVE (Negative); Urine RBC <5 /HPF (None Seen); Urine Urobilinogen Normal (Normal); Urine WBC <5 /HPF (<5); Urine pH 5.5 (5.0-7.0)
[2024-04-20 01:58] LABS: Specific Gravity 1.007 (1.005-1.030)
[2024-04-20 02:02] LABS: Barbiturates NEGATIVE (NEGATIVE); Benzodiazepines NEGATIVE (NEGATIVE); Cocaine NEGATIVE (NEGATIVE); METHAMPHETAM NEGATIVE (NEGATIVE); Methadone NEGATIVE (NEGATIVE); Opiates NEGATIVE (NEGATIVE); Phencyclidine NEGATIVE (NEGATIVE); THC Cannibis NEGATIVE (NEGATIVE)
--- NOTE | 2024-04-20 07:38 | ER ---
Nurse's Notes [facility] Name: Pam Keller Age: 23 yrs Sex: Female : 2000 Arrival Date: 04/19/2024 Time: 19:05 Bed 16 Private MD: Diagnosis: Altered mental status, unspecified-no suicidal , not homicidal;Alcohol abuse with intoxication Presentation: 04/19 19:05 Chief complaint: EMS states: Admits to EMS wanting to kill herself. verbally aggressive kj2 to family, intoxicated, drank "four locos" x 2, became physically aggressive towards [employer]. Coronavirus screen: Client denies travel out of the [place] in the last 14 days. Ebola Screen: No symptoms or risks identified at this time. Initial Sepsis Screen: Does the patient meet any 2 criteria? No. Patient's initial sepsis screen is negative. Does the patient have a suspected source of infection? No. Patient's initial sepsis screen is negative. Risk Assessment: Do you want to hurt yourself or someone else? Patient reports desire/thoughts of hurting themselves or someone else. Provider notified. Onset of symptoms was April 19, 2024. Care prior to arrival: Medication(s) given: ketamine 300mg IM in left deltoid. 19:05 Method Of Arrival: EMS: [facility] kj2 19:05 Acuity: LEANDRO 2 kj2 Triage Assessment: 19:05 General: Appears well nourished, Behavior is drowsy. Pain: Denies pain. Neuro: Level of kj2 Consciousness is confused. Neuro: Level of Consciousness is awake. Cardiovascular: Patient's skin is warm and dry. Respiratory: Airway is patent Respiratory effort is unlabored. GI: No signs and/or symptoms were reported involving the gastrointestinal system. : No signs and/or symptoms were reported regarding the genitourinary system. 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 - Infectious Disease History:: Denies. - Social history:: Smoking status: unknown. Screenin:05 [facility] ED Fall Risk Assessment (Adult) History of falling in the last 3 months, kj2 including since admission No falls in past 3 months (0 pts) Confusion or Disorientation No (0 pts) Intoxicated or Sedated Yes (3 pts) Impaired Gait No (0 pts) Mobility Assist Device Used No (0 pt) Altered Elimination No (0 pt) Score/Fall Risk Level 0 - 2 = Low Risk Maintained a safe environment, Hourly rounding (assess needs \\T\\ fall precautionary measures) done. Abuse screen: Denies threats or abuse. Denies injuries from another. Nutritional screening: No deficits noted. Tuberculosis screening: No symptoms or risk factors identified. Assessment: 19:05 General: see triage assessment. kj2 20:05 Reassessment: Patient appears in no apparent distress at this time. Patient and/or kj2 family updated on plan of care and expected duration. Pain level reassessed. Patient is alert, oriented x 3, equal unlabored respirations, skin warm/dry/pink. 21:05 Reassessment: Patient appears in no apparent distress at this time. Patient and/or kj2 family updated on plan of care and expected duration. Pain level reassessed. Patient is alert, oriented x 3, equal unlabored respirations, skin warm/dry/pink. patient resting comfortably. 21:48 Reassessment: patient presenting increased anxiety as evidenced by she continues to try kj2 to get out of bed, toss and turns while lying in bed, fidgeting with hands. 23:00 Reassessment: Patient appears in no apparent distress at this time. Patient and/or kj2 family updated on plan of care and expected duration. Pain level reassessed. Patient is alert, oriented x 3, equal unlabored respirations, skin warm/dry/pink. 23:52 Reassessment: Patient appears in no apparent distress at this time. Patient and/or kj2 family updated on plan of care and expected duration. Pain level reassessed. Patient is alert, oriented x 3, equal unlabored respirations, skin warm/dry/pink. 04/20 01:00 Reassessment: Patient appears in no apparent distress at this time. Patient and/or kj2 family updated on plan of care and expected duration. Pain level reassessed. Patient is alert, oriented x 3, equal unlabored respirations, skin warm/dry/pink. 02:00 Reassessment: Patient appears in no apparent distress at this time. Patient and/or kj2 family updated on plan of care and expected duration. Pain level reassessed. Patient is alert, oriented x 3, equal unlabored respirations, skin warm/dry/pink. 03:00 Reassessment: Patient appears in no apparent distress at this time. Patient and/or kj2 family updated on plan of care and expected duration. Pain level reassessed. Patient is alert, oriented x 3, equal unlabored respirations, skin warm/dry/pink. 04:00 Reassessment: Patient appears in no apparent distress at this time. Patient and/or kj2 family updated on plan of care and expected duration. Pain level reassessed. Patient is alert, oriented x 3, equal unlabored respirations, skin warm/dry/pink. 05:00 Reassessment: Patient appears in no apparent distress at this time. Patient and/or kj2 family updated on plan of care and expected duration. Pain level reassessed. Patient is alert, oriented x 3, equal unlabored respirations, skin warm/dry/pink. 06:00 Reassessment: Patient appears in no apparent distress at this time. Patient and/or kj2 family updated on plan of care and expected duration. Pain level reassessed. Patient is alert, oriented x 3, equal unlabored respirations, skin warm/dry/pink. 07:00 Reassessment: Patient appears in no apparent distress at this time. Patient and/or kj2 family updated on plan of care and expected duration. Pain level reassessed. Patient is alert, oriented x 3, equal unlabored respirations, skin warm/dry/pink. patient resting comfortably, responds to call of name. 08:48 General: patient provided with breakfast tray. . ap3 08:50 General: Appears in no apparent distress. Behavior is calm, cooperative, appropriate ap3 for age. Pain: Denies pain. Neuro: Level of Consciousness is awake, alert, obeys commands, Oriented to person, place, time, situation. Cardiovascular: Patient's skin is warm and dry. Respiratory: Airway is patent Respiratory effort is even, unlabored, Respiratory pattern is regular, symmetrical. 09:20 General: safety plan completed. . ap3 09:36 Reassessment: contacted patients mother for transportation home. General: Appears. ap3 Psych: 04/19 19:05 [place] Suicide Severity Screening: In the past month, have you wished you were kj2 or wished you could go to sleep and not wake up? Patient responds "No." "In the past month, have you actually had any thoughts of killing yourself?" Patient responds "no." "In your lifetime, have you ever done anything, started to do anything, or prepared to do anything to end your life?" Patient responds "no.". Subjective: Patient's mood is drowsy. Objective: Patient is anxious. Interventions: Patient placed in hospital gown. Searched person for dangerous items. Belonging list filled out. Safety Checks: Personal items have been removed. Door is open. No visitors are present at this time. sitter assigned to patient and close to nurses station. Patient uses 1-5 cans of liquor, Last use was 1 hours ago. Commitment: Patient will be an involuntary commitment. JASMYN. 04/20 07:00 [place] Suicide Severity Screening: In the past month, have you wished you were ap3 or wished you could go to sleep and not wake up? Patient responds "No." "In the past month, have you actually had any thoughts of killing yourself?" Patient responds "no." "In your lifetime, have you ever done anything, started to do anything, or prepared to do anything to end your life?" Patient responds "no.". Subjective: Patient's mood is pleasant Delusions are denied, Hallucinations are denied. Objective: Patient is cooperative, Speech is normal, Affect is appropriate. Safety Checks: Door is open. Patient uses Last use was last night. Vital Signs: 04/19 19:05 BP 152 / 115; Pulse 115; Resp 20; Pulse Ox 100% on 2 lpm NC; kj2 19:05 Weight 108.86 kg; Height 5 ft. 8 in. ; kj2 04/20 08:15 BP 104 / 72; Pulse 121; Pulse Ox 98% ; vk 09:17 BP 118 / 67; am7 09:17 Pulse 102; Pulse Ox 100% ; am7 04/19 19:05 Body Mass Index 36.49 (108.86 kg, 172.72 cm) kj2 ED Course: 04/19 19:05 Patient arrived in ED. jj6 19:05 Maintain EMS IV. Dressing intact. Good blood return noted. Site clean \\T\\ dry. Gauge \\T\\ kj 2 site: 18guage right AC. Flushed with 10 mL NS. Patient maintains SpO2 saturation greater than 95% on room air. 19:05 clos3 to nurses station and has a sitter. Provided Education on:. kj2 19:05 Arm band placed on Patient placed in an exam room, on a stretcher. kj2 19:11 Jason Benjamin MD is Attending Physician. bo1 19:26 Danielle Sinha, RN is Primary Nurse. kj2 19:33 Triage completed. kj2 20:18 PT-INR Sent. vk 20:18 Hepatic Function Sent. vk 20:18 ETOH Level Sent. vk 20:18 CBC with Diff Sent. vk 20:18 Basic Metabolic Panel Sent. vk 20:18 Acetaminophen Sent. vk 20:19 Salicylate Sent. vk 20:19 Initial lab(s) drawn, by me, sent to lab. vk 04/20 01:20 Assisted to bathroom. kj2 07:00 Report given to Hollie Bosch RN. kj2 07:03 Attending Physician role handed off by Jason Benjamin MD marcela 07:03 Darian Keith MD is Attending Physician. marcela 07:37 Roge Medrano DO is Referral Physician. marcela 08:16 EKG done, by ED staff, reviewed by Darian Keith MD. vk 09:31 Joesph Fernandez MD is Referral Physician. marcela 10:07 No provider procedures requiring assistance completed. IV discontinued, intact, ap3 bleeding controlled, No redness/swelling at site. Pressure dressing applied. Administered Medications: 04/19 19:51 CANCELLED (Not needed): ketamine1 mg/kg IVP once bo1 19:52 CANCELLED (Not needed): mg IVP once bo1 20:00 Drug: Geodon IM 40 mg IM once Route: IM; Site: left deltoid; kj2 20:30 Follow up: Response: No adverse reaction; Anxiety decreased kj2 22:06 Drug: Ativan IVP 2 mg IVP once Route: IVP; Site: right wrist; kj2 04/20 01:46 Follow up: Response: No adverse reaction kj2 Medication: 04/19 19:05 VIS not applicable for this client. kj2 Outcome: 04/20 07:38 Discharge ordered by . marcela 10:08 Discharged to home ambulatory, with family, ap3 10:08 Condition: good 10:08 Discharge instructions given to patient, family, Instructed on discharge instructions, follow up and referral plans. safety practices, Demonstrated understanding of instructions, follow-up care, Prescriptions given X 10:09 Patient left the ED. ap3 Signatures: Darian Keith MD MD cha Prokisch, Amanda RN RN ap3 Laura Romero jj6 Phyllis Payton Benjamin, MD MD bo1 Danielle Sinha RN RN kj2 Odessa Salazar am7 Corrections: (The following items were deleted from the chart) 04/19 19:44 19:43 108.86 kg; Height 5 ft. 8 in.; BMI: 36.4; kj2 kj2 04/20 07:26 04/19 19:05 Acuity: LEANDRO 1 kj2 kj2
--- NOTE | 2024-04-20 07:38 | EDPHYS ---
Physician Documentation [facility] Name: Pam Keller Age: 23 yrs Sex: Female : 2000 Arrival Date: 04/19/2024 Time: 19:05 Bed 16 Private MD: ED Physician Darian Keith HPI: 04/19 19:42 This 23 yrs old Female presents to ER via EMS with complaints of Altered bo1 Mental Status. 19:42 The patient presents with agitation, Pt arrives viw [facility]MYN by [facility]. Pt with SI bo1 allegedly. EMS enroute administered 300mg IM Ketamine, wearing off. 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 - Infectious Disease History:: Denies. - Social history:: Smoking status: unknown. ROS: 20:26 Unable to obtain ROS due to altered mental status, Pt is "sedated" somewhat with the bo1 prior ketamine IM med and is unable to respond coherently at this time, Exam: 20:26 Constitutional: This is a well developed, well nourished patient who is in acute bo1 distress. 20:26 Constitutional: The patient appears in obvious distress, moderately distressed, restless, Agitated and somewhat combative 20:26 Eyes: Exam is negative for acute changes, 20:26 Cardiovascular: Rate: tachycardic, Pulses: no pulse deficits are appreciated, Heart sounds: normal, 20:26 Respiratory: the patient does not display signs of respiratory distress, Respirations: normal, Breath sounds: are clear throughout, 20:26 Musculoskeletal/extremity: Extremities: all appear grossly normal, with no appreciated pain with palpation, No lazo or signs of self injury, 20:26 Skin: injury, is not appreciated, Warm and dry. 20:26 Psych: JASMYN reviewed. Pt's original state cannot be ascertained. Pt is agitated coming out from the ketamine. 04/20 08:28 ECG was reviewed by the Attending Physician. marcela Vital Signs: 04/19 19:05 BP 152 / 115; Pulse 115; Resp 20; Pulse Ox 100% on 2 lpm NC; kj2 19:05 Weight 108.86 kg; Height 5 ft. 8 in. ; kj2 12/22 08:15 BP 104 / 72; Pulse 121; Pulse Ox 98% ; vk 09:17 BP 118 / 67; am7 09:17 Pulse 102; Pulse Ox 100% ; am7 04/19 19:05 Body Mass Index 36.49 (108.86 kg, 172.72 cm) kj2 MDM: 04/19 19:11 Medical Screening Exam initiated bo1 04/20 06:20 Differential Diagnosis: alcohol intoxication, Acute OD substance abuse vs ETOH. Data bo1 reviewed: vital signs, lab test result(s). ED course: Pt is awaiting detox for ETOH level to drop below 80. 04/19 19:42 Order name: Acetaminophen; Complete Time: 21:41 bo1 04/19 19:42 Order name: Basic Metabolic Panel; Complete Time: 21:41 bo1 04/19 19:42 Order name: CBC with Diff; Complete Time: 20:35 bo1 04/19 19:42 Order name: ETOH Level; Complete Time: 21:41 bo 04/19 19:42 Order name: Hepatic Function; Complete Time: 21:41 bo1 04/19 19:42 Order name: PT-INR; Complete Time: 20:35 bo1 04/19 19:42 Order name: Test, Urine; Complete Time: 02:48 bo1 04/19 19:42 Order name: Salicylate; Complete Time: 21:41 bo1 04/19 19:42 Order name: Urinalysis w/ reflexes; Complete Time: 02:48 bo1 04/19 19:42 Order name: Urine Drug Screen; Complete Time: 02:48 bo 04/19 19:42 Order name: EKG; Complete Time: 19:43 bo1 04/19 19:42 Order name: EKG - Nurse/Tech; Complete Time: 08:17 bo1 04/19 19:42 Order name: IV Saline Lock; Complete Time: 20:18 bo1 04/19 19:42 Order name: Labs collected and sent; Complete Time: 20:18 bo 04/19 19:42 Order name: Suicide Precautions; Complete Time: 05:30 bo1 04/19 19:42 Order name: Suicide Screening ([place]); Complete Time: 05:31 bo EC:28 Rate is 100 beats/min. Rhythm is regular. QRS Herreid is Normal. MS interval is normal. marcela QRS interval is normal. QT interval is normal. No Q waves. T waves are Normal. No ST changes noted. Clinical impression: NSR w/ Non-specific ST/T Changes and No evidence of ischemia. Interpreted by me. Reviewed by me. Administered Medications: 04/19 19:51 CANCELLED (Not needed): ketamine1 mg/kg IVP once bo1 19:52 CANCELLED (Not needed): mg IVP once bo1 20:00 Drug: Geodon IM 40 mg IM once Route: IM; Site: left deltoid; kj2 20:30 Follow up: Response: No adverse reaction; Anxiety decreased kj2 22:06 Drug: Ativan IVP 2 mg IVP once Route: IVP; Site: right wrist; kj2 04/20 01:46 Follow up: Response: No adverse reaction kj2 Disposition Summary: 04/20/24 07:38 Discharge Ordered Notes: Location: Home marcela Problem: new marcela Symptoms: have improved marcela Condition: Stable marcela Diagnosis - Altered mental status, unspecified - no suicidal , not homicidal marcela - Alcohol abuse with intoxication marcela Followup: marcela - With: Private Physician - When: 2 - 3 days - Reason: Recheck today's complaints, Continuance of care, Re-evaluation by your physician Followup: marcela - With: Roge Medrano, - When: 2 - 3 days - Reason: Recheck today's complaints, Re-evaluation by your physician Followup: marcela - With: Joesph Fernandez MD - When: 2 - 3 days - Reason: Recheck today's complaints, Re-evaluation by your physician Discharge Instructions: - Discharge Summary Sheet marcela - Alcohol Intoxication marcela - Alcohol Intoxication, [id number] marcela Forms: - Medication Reconciliation Form marcela - Antibiotic Education marcela - Prescription Opioid Use marcela - Patient Portal Instructions marcela - Leadership Thank You Letter marcela Signatures: Dispatcher [employer] EDDarian Lubin MD MD cha Oei, Benjamin, MD MD bo1 Danielle Sinha, ILENE RN kj2 Corrections: (The following items were deleted from the chart) 04/19 19:51 19:41 Ketamine IVP 1 mg/kg IVP once ordered. bo1 bo1 19:52 19:41 Ketamine IVP 250 mg IVP once ordered. bo1 bo1
[2024-04-20 10:23] VITALS: O2SAT 100
[2024-04-20 10:25] VITALS: BP 118/67
--- NOTE | 2024-04-25 13:50 | EKG ---
Test Date: 2024-04-20 Test Time: 07:50:26 Ear Nose And Throat Specialist: AM MEASUREMENT RESULTS: Intervals: Rate: 100 MS: 140 QRSD: 80 QT: 348 QTc: 448 [place]: P: 71 MS: 140 QRS: 83 T: 63 INTERPRETIVE STATEMENTS: Normal sinus rhythm Normal ECG Compared to ECG 04/24/2022 20:41:20 No significant changes Electronically Signed On 04-25-24 13:39:23 FEED MILL SUPERVISOR by Nathen Bingham
== END 2024-04-20 10:09 | disposition home or self-care (01) ==
LOC: ER 19:05
DX: R41.82 Altered mental status, unspecified (principal); F10.129 Alcohol abuse with intoxication, unspecified
CPT/HCPCS: 93005; 85025; 81001; 80048; 36415; 81025; 85610; 80076; 80307; 96372; 96374; 99285; 80143; 80179; 82077; J3486